=== PATIENT | female | born 1950 | race Caucasian/White ===

== ENCOUNTER 2017-12-21 10:03 | Inpatient (IN) | payer MEDICARE ==
[~2017-12-21] VITALS: Ht 165.1 cm; Wt 129.5 kg
[2017-12-21] VITALS (7 sets, daily range): BP systolic 111–197; BP diastolic 74–96; PULSE 60–86; RESP 16–18; TEMP 97.4–98; O2SAT 95–98
[2017-12-21] MEDS ORDERED: SODIUM CHLOR 0.9% 1000 ML INJ 1,000 ML IV SCH (10:10)
[2017-12-21] MEDS ORDERED: SODIUM CHLORIDE 0.9% FLUSH 10 ML FLUSH IVF PRN (10:15)
[2017-12-21] MEDS ORDERED: ONDANSETRON HCL 4 MG/2 ML VIAL IVP ONE (10:15)
[2017-12-21] MEDS ORDERED: PHEN-414 PO (10:45)
[2017-12-21] MEDS ORDERED: GABA100C4 PO (10:45)
[2017-12-21] MEDS ORDERED: THIO100T2 PO (10:45)
[2017-12-21 10:54] LABS: AUTOMATED NEUTROPHIL # 4.2 TH/MM3 (1.8-7.7); BASOPHIL % 0.4 % (0.0-2.0); EOSINOPHIL # 0.1 TH/MM3 (0-0.4); EOSINOPHIL % 0.8 % (0.0-4.0); HEMOGLOBIN 16.4 GM/DL (11.6-15.3); LYMPH % 27.5 % (9.0-44.0); LYMPHOCYTE # 1.9 TH/MM3 (1.0-4.8); MEAN CELL VOLUME 92.9 FL (80.0-100.0); MEAN CORPUSCULAR HEMOGLOBIN 33.1 PG (27.0-34.0); MEAN CORPUSCULAR HGB CONC 35.7 % (32.0-36.0); MEAN PLATELET VOLUME 9.4 FL (7.0-11.0); MONO % 11.6 % (0.0-8.0); MONOCYTE # 0.8 TH/MM3 (0-0.9); NEUT % 59.7 % (16.0-70.0); PLATELET COUNT 184 TH/MM3 (150-450); RED BLOOD COUNT 4.95 MIL/MM3 (4.00-5.30); RED CELL DISTRIBUTION WIDTH 12.9 % (11.6-17.2); WHITE BLOOD COUNT 7.1 TH/MM3 (4.0-11.0)
[2017-12-21 11:26] LABS: BICARBONATE 29.5 MEQ/L (21.0-32.0); CALCIUM 8.6 MG/DL (8.5-10.1); CREATININE 1.09 MG/DL (0.50-1.00)
--- NOTE | 2017-12-21 11:27 | PD ---
HPI Chief Complaint: GI Complaint Time Seen by Provider: 11:02 Travel History International Travel<30 days: No Contact w/Intl Traveler<30days: No Traveled to known affect area: No History of Present Illness HPI 67-year-old female presents to the emergency department for evaluation of nausea , vomiting, diarrhea for 3 weeks. She also reports some kisha-umbilical abdominal pain as well. She currently rates the pain 2/10, without radiation. Patient has history of epilepsy and schizophrenia. She has tardive dyskinesia on exam, which resource program teacher with her states is normal for her. She did receive Benadryl 50 mg IV by EMS prior to arrival. She does state that she is on phenobarbital, thioridazine being, gabapentin peer patient states she has vomited 2 times this morning and had one episode of diarrhea. She denies being on antibiotics recently. Moderate severity. PFSH Past Medical History High Cholesterol: Yes Seizures: Yes : 0 Past Surgical History Cholecystectomy: Yes Other Surgery: Yes (RIGHT BREAST LUMPECTOMY ) Social History Alcohol Use: No Tobacco Use: No Substance Use: No Allergies-Medications (Allergen,Severity, Reaction): Coded Allergies: chlorpromazine (Unverified Allergy, Mild, 03/30/17) Reported Meds & Prescriptions Reported Meds & Active Scripts Active Reported Thioridazine (Thioridazine HCl) 100 Mg Tab 100 Mg PO HS Phenobarbital 32.4 Mg Tab 64.8 Mg PO HS Gabapentin 100 Mg Cap 200 Mg PO QID Review of Systems Except as stated in HPI: all other systems reviewed are Neg Physical Exam Narrative GENERAL: Well-nourished, well-developed female patient, afebrile SKIN: Focused skin assessment warm/dry. HEAD: Normocephalic. Atraumatic. ENT: Mucosa pink and moist. No erythema or exudates. No uvular edema. No uvular , palatal, or tonsillar deviation. Airway patent. Nasal turbinates appear normal without nasal blood, purulent drainage or septal hematoma. Bilateral tympanic membranes clear without erythema or perforation. EYES: No scleral icterus. No injection or drainage. NECK: Supple, trachea midline. No JVD or lymphadenopathy. CARDIOVASCULAR: Regular rate and rhythm without murmurs, gallops, or rubs. RESPIRATORY: Breath sounds equal bilaterally. No accessory muscle use. Lung sounds are clear to auscultation GASTROINTESTINAL: Abdomen soft and nondistended. Patient has tenderness around periumbilical region. MUSCULOSKELETAL: No cyanosis, or edema. BACK: Nontender without obvious deformity. No CVA tenderness. Data Data Last Documented VS Vital Signs Date Time Temp Pulse Resp B/P (MAP) Pulse Ox O2 Delivery O2 Flow Rate FiO2 12/21/17 10:21 97.4 64 18 197/96 (129) 97 Room Air Orders Orders Basic Metabolic Panel (Bmp) (12/21/17 10:10) Complete Blood Count With Diff (12/21/17 10:10) Ecg Monitoring (12/21/17 10:10) Iv Access Insert/Monitor (12/21/17 10:10) Oximetry (12/21/17 10:10) Ondansetron Inj (Zofran Inj) (12/21/17 10:15) Sodium Chlor 0.9% 1000 Ml Inj (Ns 1000 M (12/21/17 10:10) Sodium Chloride 0.9% Flush (Ns Flush) (12/21/17 10:15) Hepatic Functional Panel (12/21/17 11:17) Lipase (12/21/17 11:17) Urinalysis - C+S If Indicated (12/21/17 11:17) Ct Abd/Pel W Iv Contrast(Rout) (12/21/17 ) Phenobarbital (12/21/17 11:17) Potassium Chlor 20 Meq Premix (Kcl 20 Me (12/21/17 12:00) Potassium Chloride (Kcl) (12/21/17 12:00) Electrocardiogram (12/21/17 ) Electrocardiogram (12/21/17 ) Metoclopramide Inj (Reglan Inj) (12/21/17 12:45) Iohexol 350 Inj (Omnipaque 350 Inj) (12/21/17 12:55) Magnesium (Mg) (12/21/17 12:57) Labs Laboratory Tests Test 12/21/17 10:40 White Blood Count 7.1 TH/MM3 Red Blood Count 4.95 MIL/MM3 Hemoglobin 16.4 GM/DL Hematocrit 46.0 % Mean Corpuscular Volume 92.9 FL Mean Corpuscular Hemoglobin 33.1 PG Mean Corpuscular Hemoglobin Concent 35.7 % Red Cell Distribution Width 12.9 % Platelet Count 184 TH/MM3 Mean Platelet Volume 9.4 FL Neutrophils (%) (Auto) 59.7 % Lymphocytes (%) (Auto) 27.5 % Monocytes (%) (Auto) 11.6 % Eosinophils (%) (Auto) 0.8 % Basophils (%) (Auto) 0.4 % Neutrophils # (Auto) 4.2 TH/MM3 Lymphocytes # (Auto) 1.9 TH/MM3 Monocytes # (Auto) 0.8 TH/MM3 Eosinophils # (Auto) 0.1 TH/MM3 Basophils # (Auto) 0.0 TH/MM3 CBC Comment DIFF FINAL Differential Comment Blood Urea Nitrogen 12 MG/DL Creatinine 1.09 MG/DL Random Glucose 116 MG/DL Calcium Level 8.6 MG/DL Sodium Level 139 MEQ/L Potassium Level 2.5 MEQ/L Chloride Level 99 MEQ/L Carbon Dioxide Level 29.5 MEQ/L Anion Gap 11 MEQ/L Estimat Glomerular Filtration Rate 50 ML/MIN Total Bilirubin 0.8 MG/DL Direct Bilirubin 0.2 MG/DL Indirect Bilirubin 0.6 MG/DL Aspartate Amino Transf (AST/SGOT) 21 U/L Alanine Aminotransferase (ALT/SGPT) 54 U/L Alkaline Phosphatase 109 U/L Total Protein 6.3 GM/DL Albumin 3.1 GM/DL Lipase 65 U/L Phenobarbital Level LESS THAN 2.1 MCG/ML MDM Medical Decision Making Medical Screen Exam Complete: Yes Emergency Medical Condition: Yes Medical Record Reviewed: Yes Interpretation(s) CT abdomen/pelvis - CONCLUSION: 1. No acute findings within the abdomen and pelvis on CT. Previous cholecystectomy. Numerous bilateral renal parapelvic cysts. Differential Diagnosis Gastroenteritis versus colitis versus UTI versus appendicitis versus diverticulitis versus pancreatitis Narrative Course 67-year-old female presents to the emergency department for evaluation of nausea , vomiting, diarrhea periumbilical abdominal pain for 3 weeks. IV access obtained. CBC, CMP, lipase, UA, phenobarbital level are ordered and pending. CT abdomen/pelvis with IV contrast is ordered and pending. Patient is given normal saline 1 L IV bolus, Zofran 4 mg IV per CBC shows no acute abnormality. CMP shows hypokalemia 3.5, creatinine 1.09, glucose 116. Lipase is 65. Phenobarbital level is 2.1. CT abdomen/pelvis shows No acute findings within the abdomen and pelvis on CT. Previous cholecystectomy. Numerous bilateral renal parapelvic cysts. Patient was given potassium 20 mEq IV. She was given potassium 40 mEq p.o., but vomited after receiving potassium p.o. Patient is given Reglan 10 mg IV. Patient will be admitted for intractable vomiting, hypokalemia. Of note, it does appear the patient is going in and out of A. fib. EKG was done and shows atrial fibrillation, heart rate 116. Magnesium level was added and ordered. [facility] is paged for admission. Dr. Stanley accepted admission. Diagnosis Primary Impression: Intractable vomiting with nausea Qualified Codes: R11.2 - Nausea with vomiting, unspecified Additional Impressions: Hypokalemia Atrial fibrillation by electrocardiogram Admitting Information Admitting Physician Requests: Admit Era Chapman December 21, 2017 11:27
[2017-12-21 11:43] LABS: ALBUMIN 3.1 GM/DL (3.4-5.0); ALT (GPT) 54 U/L (10-53); AST (GOT) 21 U/L (15-37); DIRECT BILIRUBIN ADULT 0.2 MG/DL (0.0-0.2)
[2017-12-21 11:44] LABS: ALKALINE PHOSPHATASE 109 U/L (45-117); INDIRECT BILIRUBIN 0.6 MG/DL (0.0-0.8); TOTAL BILIRUBIN ADULT 0.8 MG/DL (0.2-1.0); TOTAL PROTEIN 6.3 GM/DL (6.4-8.2)
[2017-12-21] MEDS ORDERED: POTASSIUM CHLORIDE 20 MEQ CONTROLLED RELEASE TAB PO ONE (12:00)
[2017-12-21] MEDS ORDERED: POTASSIUM CHLOR 20 MEQ PREMIX 100 ML IV ONE (12:00)
[2017-12-21] MEDS ORDERED: METOCLOPRAMIDE HCL 10 MG/2 ML VIAL IV PUSH ONE (12:45)
[2017-12-21] MEDS ORDERED: IOHEXOL 350 MG/ML 10 ML VIAL (for RAD DIAG) IVCONTRAST ONE (12:55)
--- NOTE | 2017-12-21 13:13 | RADRPT ---
EXAM DATE/TIME: 12/21/2017 12:31 [place] COMPARISON: No previous studies available for comparison. INDICATIONS : Nausea, vomiting and diarrhea for three weeks. IV CONTRAST: 96 cc Omnipaque 350 (iohexol) IV ORAL CONTRAST: No oral contrast ingested. RADIATION DOSE: 8.91 CTDIvol (mGy) MEDICAL HISTORY : None SURGICAL HISTORY : Cholecystectomy. ENCOUNTER: Initial ACUITY: 1 day PAIN SCALE: 3/10 LOCATION: abdomen TECHNIQUE: Volumetric scanning of the abdomen and pelvis was performed. Using automated exposure control and ad justment of the mA and/or kV according to patient size, radiation dose was kept as low as reasonably achievable to obtain optimal diagnostic quality images. DICOM format image data is available electro nically for review and comparison. FINDINGS: Lung bases are clear no significant abnormality in the liver, spleen, adrenals or pancreas. Previous cholecystectomy. Numerous parapelvic cysts in both kidneys. Ureters have normal caliber. No pelvic masses or free fluid. No adenopathy. Mild scoliosis. CONCLUSION: 1. No acute findings within the abdomen and pelvis on CT. Previous cholecystectomy. Numerous bilatera l renal parapelvic cysts. Robert Farnsworth MD on December 21, 2017 at 13:07 Board Certified Radiologist. This report was verified electronically.
--- NOTE | 2017-12-21 14:05 | PD ---
Physical Exam Narrative GENERAL: 67 y/o female in no apparent distress SKIN: Focused skin assessment warm/dry. HEAD: Atraumatic. Normocephalic. EYES: Pupils equal and round. No scleral icterus. No injection or drainage. ENT: No nasal bleeding or discharge. Mucous membranes pink and moist. NECK: Trachea midline. CARDIOVASCULAR: Regular rate and rhythm. RESPIRATORY: No accessory muscle use. Clear to auscultation. Breath sounds equal bilaterally. GASTROINTESTINAL: Abdomen soft, non-tender, nondistended. MUSCULOSKELETAL: No obvious deformities. No clubbing. No cyanosis. NEUROLOGICAL: Awake and alert. No obvious cranial nerve deficits. Motor grossly within normal limits. Normal speech. PSYCHIATRIC: Appropriate mood and affect; insight and judgment normal. Data Data Last Documented VS Vital Signs Date Time Temp Pulse Resp B/P (MAP) Pulse Ox O2 Delivery O2 Flow Rate FiO2 12/21/17 10:21 97.4 64 18 197/96 (129) 97 Room Air Orders Orders Basic Metabolic Panel (Bmp) (12/21/17 10:10) Complete Blood Count With Diff (12/21/17 10:10) Ecg Monitoring (12/21/17 10:10) Iv Access Insert/Monitor (12/21/17 10:10) Oximetry (12/21/17 10:10) Ondansetron Inj (Zofran Inj) (12/21/17 10:15) Sodium Chlor 0.9% 1000 Ml Inj (Ns 1000 M (12/21/17 10:10) Sodium Chloride 0.9% Flush (Ns Flush) (12/21/17 10:15) Hepatic Functional Panel (12/21/17 11:17) Lipase (12/21/17 11:17) Urinalysis - C+S If Indicated (12/21/17 11:17) Ct Abd/Pel W Iv Contrast(Rout) (12/21/17 ) Phenobarbital (12/21/17 11:17) Potassium Chlor 20 Meq Premix (Kcl 20 Me (12/21/17 12:00) Potassium Chloride (Kcl) (12/21/17 12:00) Electrocardiogram (12/21/17 ) Electrocardiogram (12/21/17 ) Metoclopramide Inj (Reglan Inj) (12/21/17 12:45) Iohexol 350 Inj (Omnipaque 350 Inj) (12/21/17 12:55) Magnesium (Mg) (12/21/17 12:57) Admit Order (Ed Use Only) (12/21/17 13:34) Labs Laboratory Tests Test 12/21/17 00:00 12/21/17 10:40 Magnesium Level 1.9 MG/DL White Blood Count 7.1 TH/MM3 Red Blood Count 4.95 MIL/MM3 Hemoglobin 16.4 GM/DL Hematocrit 46.0 % Mean Corpuscular Volume 92.9 FL Mean Corpuscular Hemoglobin 33.1 PG Mean Corpuscular Hemoglobin Concent 35.7 % Red Cell Distribution Width 12.9 % Platelet Count 184 TH/MM3 Mean Platelet Volume 9.4 FL Neutrophils (%) (Auto) 59.7 % Lymphocytes (%) (Auto) 27.5 % Monocytes (%) (Auto) 11.6 % Eosinophils (%) (Auto) 0.8 % Basophils (%) (Auto) 0.4 % Neutrophils # (Auto) 4.2 TH/MM3 Lymphocytes # (Auto) 1.9 TH/MM3 Monocytes # (Auto) 0.8 TH/MM3 Eosinophils # (Auto) 0.1 TH/MM3 Basophils # (Auto) 0.0 TH/MM3 CBC Comment DIFF FINAL Differential Comment Blood Urea Nitrogen 12 MG/DL Creatinine 1.09 MG/DL Random Glucose 116 MG/DL Calcium Level 8.6 MG/DL Sodium Level 139 MEQ/L Potassium Level 2.5 MEQ/L Chloride Level 99 MEQ/L Carbon Dioxide Level 29.5 MEQ/L Anion Gap 11 MEQ/L Estimat Glomerular Filtration Rate 50 ML/MIN Total Bilirubin 0.8 MG/DL Direct Bilirubin 0.2 MG/DL Indirect Bilirubin 0.6 MG/DL Aspartate Amino Transf (AST/SGOT) 21 U/L Alanine Aminotransferase (ALT/SGPT) 54 U/L Alkaline Phosphatase 109 U/L Total Protein 6.3 GM/DL Albumin 3.1 GM/DL Lipase 65 U/L Phenobarbital Level LESS THAN 2.1 MCG/ML MDM Supervised Visit with JASON: Yes Interpretation(s) CBC & BMP Diagram 12/21/17 10:40 Calcium Level 8.6 Last 24 hours Impressions Abdomen/Pelvis CT 12/21/17 0000 Signed Impressions: Service Date/Time: Thursday, December 21, 2017 12:31 - CONCLUSION: 1. No acute findings within the abdomen and pelvis on CT. Previous cholecystectomy. Numerous bilateral renal parapelvic cysts. Robert Farnsworth MD Narrative Course I, Dr. wright, have reviewed the advance practice practitioner's documentation and am in agreement, met with the patient face to face, made the diagnosis, and the medical decision making was done by me. *My assessment and Findings: 67 -year-old female presents with vomiting and diarrhea. She also is having intermittent movements of her face and was given Benadryl without improvement. She is given antiemetic and unable to tolerate oral potassium. She will be admitted for further electrolyte replacement and emesis control. Patient intermittently here has also had atrial fibrillation that will need to be monitored. Magnesium was added on given significant hypokalemia. Diagnosis Primary Impression: Intractable vomiting with nausea Qualified Codes: R11.2 - Nausea with vomiting, unspecified Additional Impressions: Atrial fibrillation by electrocardiogram Hypokalemia Admitting Information Admitting Physician Requests: Admit Charlotte Wright MD December 21, 2017 14:05
--- NOTE | 2017-12-21 14:34 | HHI.HP ---
[facility] [place] [facility] Admission Diagnosis intractable vomiting, hypokalemia Diagnoses: Chief Complaint: Nausea vomiting, diarrhea 3 weeks Travel History International Travel<30 Days: No Contact w/Intl Traveler <30 Da: No Traveled to Known Affected Are: No History of Present Illness Patient is a 67-year-old female with known history of Schizophrenia, tardive dyskinesia, seizure disorder, legally blind who initially came into the hospital for complaints of nausea, vomiting, diarrhea 3 weeks. Patient states that she is unable to take anything down. Reports that the diarrhea has resolved this morning. Complains of not able to urinate today. States that since she came into the hospital she is unable to void. She has a social work, caregiver at the bedside were and she states that patient is continent of bowel and bladder and able to walk around. Reports that patient is correct that she has not urinated since she came to the hospital. Patient states she continues to have nausea, no vomiting, no diarrhea. Denies chest pain, palpitations, headaches, dizziness. Denies any abdominal pain, abdominal cramping. Denies any fevers, chills. Reports urinary retention. Review of Systems Except as stated in HPI: all other systems reviewed are Neg Past Family Social History Past Medical History Schizophrenia Epilepsy Tardive dyskinesia Seizure Legally blind Past Surgical History Right breast lumpectomy Cholecystectomy Reported Medications Reported Meds & Active Scripts Active Reported Thioridazine (Thioridazine HCl) 100 Mg Tab 100 Mg PO HS Phenobarbital 32.4 Mg Tab 64.8 Mg PO HS Gabapentin 100 Mg Cap 200 Mg PO QID Allergies: Coded Allergies: chlorpromazine (Unverified Allergy, Mild, 03/30/17) Active Ordered Medications Current Medications Medications (Trade) Dose Ordered Sig/Cristi Route Start Time Stop Time Status Last Admin (NS Flush) 2 ml UNSCH PRN IVF 12/21/17 10:15 Family History Mother had cancer Sister has blood clot in the lung Social History Denies alcohol use Denies tobacco use Denies illicit drug use Physical Exam Vital Signs Vital Signs Date Time Temp Pulse Resp B/P (MAP) Pulse Ox O2 Delivery O2 Flow Rate FiO2 12/21/17 10:21 97.4 64 18 197/96 (129) 97 Room Air 12/21/17 10:21 60 18 98 Room Air 12/21/17 10:18 18 12/21/17 10:09 97.4 64 18 197/96 (129) 97 Physical Exam GENERAL: This is an obese, well-developed patient, in no apparent distress. SKIN: Cool and dry. HEAD: Normocephalic. EYES: Pupils equal round and reactive. Extraocular motions intact. No scleral icterus. No injection or drainage. ENT: Nose without bleeding. Throat without erythema. Uvula midline. Airway patent. NECK: Trachea midline. CARDIOVASCULAR: Regular rate and rhythm without murmurs, gallops, or rubs. RESPIRATORY: Clear to auscultation. Breath sounds equal bilaterally. No wheezes , rales, or rhonchi. GASTROINTESTINAL: Abdomen soft, nondistended. Suprapubic tenderness. Bowel sounds active 4. MUSCULOSKELETAL: Extremities without clubbing, cyanosis, or edema. NEUROLOGICAL: Awake and alert. Cranial nerves II through XII intact. Motor and sensory grossly within normal limits. Tardive dyskinesia. Laboratory Laboratory Tests Test 12/21/17 00:00 12/21/17 10:40 Magnesium Level 1.9 White Blood Count 7.1 Red Blood Count 4.95 Hemoglobin 16.4 Hematocrit 46.0 Mean Corpuscular Volume 92.9 Mean Corpuscular Hemoglobin 33.1 Mean Corpuscular Hemoglobin Concent 35.7 Red Cell Distribution Width 12.9 Platelet Count 184 Mean Platelet Volume 9.4 Neutrophils (%) (Auto) 59.7 Lymphocytes (%) (Auto) 27.5 Monocytes (%) (Auto) 11.6 Eosinophils (%) (Auto) 0.8 Basophils (%) (Auto) 0.4 Neutrophils # (Auto) 4.2 Lymphocytes # (Auto) 1.9 Monocytes # (Auto) 0.8 Eosinophils # (Auto) 0.1 Basophils # (Auto) 0.0 CBC Comment DIFF FINAL Differential Comment Blood Urea Nitrogen 12 Creatinine 1.09 Random Glucose 116 Calcium Level 8.6 Sodium Level 139 Potassium Level 2.5 Chloride Level 99 Carbon Dioxide Level 29.5 Anion Gap 11 Estimat Glomerular Filtration Rate 50 Total Bilirubin 0.8 Direct Bilirubin 0.2 Indirect Bilirubin 0.6 Aspartate Amino Transf (AST/SGOT) 21 Alanine Aminotransferase (ALT/SGPT) 54 Alkaline Phosphatase 109 Total Protein 6.3 Albumin 3.1 Lipase 65 Phenobarbital Level LESS THAN 2.1 Result Diagram: 12/21/17 1040 12/21/17 1040 Imaging Last Impressions Abdomen/Pelvis CT 12/21/17 0000 Signed Impressions: Service Date/Time: Thursday, December 21, 2017 12:31 - CONCLUSION: 1. No acute findings within the abdomen and pelvis on CT. Previous cholecystectomy. Numerous bilateral renal parapelvic cysts. MD Kentrell Zavala VTE Risk Assessment Kentrell VTE Risk Assessment: Mod/High Risk (score >= 2) Caprini Risk Assessment Model Point Value = 1 Point Value = 2 Point Value = 3 Point Value = 5 Age 41-60 Minor surgery BMI > 25 kg/m2 Swollen legs Varicose veins or History of unexplained or recurrent spontaneous Oral contraceptives or hormone replacement Sepsis (< 1 month) Serious lung disease, including pneumonia (< 1 month) Abnormal pulmonary function Acute myocardial infarction Congestive heart failure (< 1 month) History of inflammatory bowel disease Medical patient at bed rest Age 61-74 Arthroscopic surgery Major open surgery (> 45 min) Laparoscopic surgery (> 45 min) Malignancy Confined to bed (> 72 hours) Immobilizing plaster cast Central venous access Age >= 75 History of VTE Family history of VTE Factor V Leiden Prothrombin [id number] Lupus anticoagulant Anticardiolipin antibodies Elevated serum homocysteine Heparin-induced thrombocytopenia Other congenital or acquired thrombophilia Stroke (< 1 month) Elective arthroplasty Hip, pelvis, or leg fracture Acute spinal cord injury (< 1 month) Prophylaxis Regimen Total Risk Factor Score Risk Level Prophylaxis Regimen 0-1 Low Early ambulation 2 Moderate Order ONE of the following: *Sequential Compression Device (SCD) *Heparin 5000 units SQ BID 3-4 Higher Order ONE of the following medications: *Heparin 5000 units SQ TID *Enoxaparin/Lovenox 40 mg SQ daily (WT < 150 kg, CrCl > 30 mL/min) *Enoxaparin/Lovenox 30 mg SQ daily (WT < 150 kg, CrCl > 10-29 mL/min) *Enoxaparin/Lovenox 30 mg SQ BID (WT < 150 kg, CrCl > 30 mL/min) AND/OR *Sequential Compression Device (SCD) 5 or more Highest Order ONE of the following medications: *Heparin 5000 units SQ TID (Preferred with Epidurals) *Enoxaparin/Lovenox 40 mg SQ daily (WT < 150 kg, CrCl > 30 mL/min) *Enoxaparin/Lovenox 30 mg SQ daily (WT < 150 kg, CrCl > 10-29 mL/min) *Enoxaparin/Lovenox 30 mg SQ BID (WT < 150 kg, CrCl > 30 mL/min) AND *Sequential Compression Device (SCD) Assessment and Plan Problem List: (1) Intractable vomiting with nausea ICD Code: R11.2 - Nausea with vomiting, unspecified Status: Acute Assessment and Plan Patient is a 67-year-old female with known history of Schizophrenia, tardive dyskinesia, seizure disorder, legally blind who initially came into the hospital for complaints of nausea, vomiting, diarrhea 3 weeks. Intractable nausea, vomiting, diarrhea -Diarrhea has resolved as per patient -Patient was given Zofran 1 dose in the ED and Reglan. Reports it has improved. Continue Zofran for now, and Reglan with meals. -CT of the abdomen and pelvis showed no acute findings within the abdomen and pelvis on CT. Previous cholecystectomy. Numerous bilateral renal parapelvic cysts. -Start clear liquid diet. If patient unable to tolerate will consult GI. Urinary retention -Bladder scan, if greater than 300 mL's straight cath patient. -Monitor output -Send UA Hypokalemia -Potassium replacement given 1 dose in ED -We will add 40 M EQ's IV -Check potassium tomorrow -Keep patient on telemetry Seizure disorder, epilepsy Schizophrenia -Continue home medications DVT prop heparinhep Code Status Full code Discussed Condition With Patient, caregiver, social media developer, Dr. Stanley Problem Qualifiers (1) Intractable vomiting with nausea: Qualified Codes: R11.2 - Nausea with vomiting, unspecified Bolivar Gusman December 21, 2017 14:34
[2017-12-21] MEDS ORDERED: MAGNESIUM HYDROXIDE SUSP 30 ML CUP PO PRN (14:45)
[2017-12-21] MEDS ORDERED: ACETAMINOPHEN 325 MG TAB PO PRN (14:45)
[2017-12-21] MEDS ORDERED: NALOXONE HCL 0.4 MG/ML AMP IV PUSH PRN (14:45)
[2017-12-21] MEDS: HEPARIN SODIUM - SQ 10,000 UNITS/ML VIAL SQ SCH (16:25)
[2017-12-21] MEDS: POTASSIUM CHLOR 20 MEQ PREMIX 100 ML IV SCH ×2 (16:25→18:22)
[2017-12-21] MEDS: SODIUM CHLOR 0.9% 1000 ML INJ 1,000 ML IV SCH (16:25)
[2017-12-21] MEDS: METOCLOPRAMIDE HCL SYRUP 10 MG/10 ML UDC PO SCH ×2 (17:00→20:12)
--- NOTE | 2017-12-21 17:12 | EKG ---
Date Performed: 12/21/2017 Time Performed: 12:20:57 PTAGE: 67 years EKG: ATRIAL FIBRILLATION NONSPECIFIC ST & T-WAVE ABNORMALITY ABNORMAL RHYTHM ECG PREVIOUS TRACING : 03/07/2002 18.10 DOCTOR: Jose Leal Interpretating Date/Time 12/21/2017 17:11:11
[2017-12-21] MEDS: GABAPENTIN 100 MG CAP PO SCH ×2 (18:00→20:12)
[2017-12-21] MEDS: ONDANSETRON HCL 4 MG/2 ML VIAL IVP PRN (18:53)
[2017-12-21] MEDS: PHENobarbital 32.4 MG TAB PO SCH (20:12)
[2017-12-21 20:57] LABS: BACTERIA, URINE MANY /hpf; BILIRUBIN, URINE NEG (NEG); BLOOD, URINE NEG (NEG); GLUCOSE,URINE NEG (NEG); KETONE, URINE NEG (NEG); NITRITE,URINE NEG (NEG); PH, URINE 6.5 (5.0-8.5); SQUAMOUS EPITHELIAL CELL URINE 32 /hpf (0-5); URINE COLOR LIGHT-YELLOW (YELLW/STRAW); URINE LEUKOCYTE ESTERASE MOD (NEG)
[2017-12-21] MEDS ORDERED: THIORIDAZINE 100 MG PO SCH (21:00)
[2017-12-22] VITALS (8 sets, daily range): BP systolic 124–192; BP diastolic 73–107; PULSE 65–85; RESP 16–20; TEMP 97.7–98.4; O2SAT 94–96
[2017-12-22] MEDS: HEPARIN SODIUM - SQ 10,000 UNITS/ML VIAL SQ SCH ×2 (02:09→15:49)
[2017-12-22] MEDS: SODIUM CHLOR 0.9% 1000 ML INJ 1,000 ML IV SCH ×2 (02:09→10:15)
[2017-12-22] MEDS: METOCLOPRAMIDE HCL SYRUP 10 MG/10 ML UDC PO SCH ×3 (08:00→16:00)
[2017-12-22] MEDS: GABAPENTIN 100 MG CAP PO SCH ×4 (08:06→19:40)
[2017-12-22] MEDS: ONDANSETRON HCL 4 MG/2 ML VIAL IVP PRN ×2 (08:07→14:13)
[2017-12-22] MEDS ORDERED: METOCLOPRAMIDE HCL 10 MG/2 ML VIAL IM SCH (08:15)
--- NOTE | 2017-12-22 09:20 | PD.CONS ---
HPI History of Present Illness This is a 67 year old female with hx schizophrenia, tardive dyskinesia, legal blindness who presented to the ER for n/v and diarrhea. Pt says she has had n/ v for 5 days and diarrhea for 10 days. SHe denies abd pain, fevers. SHe actively heaving but there is no emesis. Prior to heaving spell she was asking for breakfast. Per EMR her caregiver reported she was having these symptoms for [address] scan unremarkable. Never had EGD or colonoscopy. Poor historian. (Quiana Tillman) PFSH Past Medical History Schizophrenia Epilepsy Tardive dyskinesia Seizure Legally blind Past Surgical History Right breast lumpectomy Cholecystectomy (Quiana Tillman) Coded Allergies: chlorpromazine (Unverified Allergy, Mild, 03/30/17) Family History Mother had cancer Sister has blood clot in the lung Social History Denies alcohol use Denies tobacco use Denies illicit drug use (Quiana Tillman) Review of Systems Constitutional: DENIES: Fever Eyes: COMPLAINS OF: Blurred vision Ears, nose, mouth, throat: DENIES: Hearing loss Respiratory: DENIES: Cough Cardiovascular: DENIES: Chest pain Gastrointestinal: COMPLAINS OF: Abdominal pain, Diarrhea, Nausea, Vomiting, DENIES: Hematemesis otherwise noncontributory (Quiana Tillman) GI Exam Vitals I&O Vital Signs Date Time Temp Pulse Resp B/P (MAP) Pulse Ox O2 Delivery O2 Flow Rate FiO2 12/22/17 08:53 97.7 72 20 161/86 (111) 95 12/22/17 07:14 79 12/22/17 04:40 98.1 72 17 124/73 (90) 94 12/22/17 04:05 85 12/21/17 23:24 97.8 86 17 119/74 (89) 95 12/21/17 23:00 77 12/21/17 21:01 98.0 83 18 111/81 (91) 96 12/21/17 16:58 97.9 74 16 138/75 (96) 95 12/21/17 14:00 62 18 152/92 (112) 97 Room Air 12/21/17 10:21 97.4 64 18 197/96 (129) 97 Room Air 12/21/17 10:21 60 18 98 Room Air 12/21/17 10:18 18 12/21/17 10:09 97.4 64 18 197/96 (129) 97 I/O 12/21/17 12/21/17 12/21/17 12/22/17 12/22/17 12/22/17 07:00 15:00 23:00 07:00 15:00 23:00 # Voids 2 3 Imaging Last Impressions Abdomen/Pelvis CT 12/21/17 0000 Signed Impressions: Service Date/Time: Thursday, December 21, 2017 12:31 - CONCLUSION: 1. No acute findings within the abdomen and pelvis on CT. Previous cholecystectomy. Numerous bilateral renal parapelvic cysts. Robert Farnsworth MD Laboratory Test 12/21/17 10:40 12/21/17 20:30 White Blood Count 7.1 TH/MM3 Red Blood Count 4.95 MIL/MM3 Hemoglobin 16.4 GM/DL Hematocrit 46.0 % Mean Corpuscular Volume 92.9 FL Mean Corpuscular Hemoglobin 33.1 PG Mean Corpuscular Hemoglobin Concent 35.7 % Red Cell Distribution Width 12.9 % Platelet Count 184 TH/MM3 Mean Platelet Volume 9.4 FL Neutrophils (%) (Auto) 59.7 % Lymphocytes (%) (Auto) 27.5 % Monocytes (%) (Auto) 11.6 % Eosinophils (%) (Auto) 0.8 % Basophils (%) (Auto) 0.4 % Neutrophils # (Auto) 4.2 TH/MM3 Lymphocytes # (Auto) 1.9 TH/MM3 Monocytes # (Auto) 0.8 TH/MM3 Eosinophils # (Auto) 0.1 TH/MM3 Basophils # (Auto) 0.0 TH/MM3 CBC Comment DIFF FINAL Differential Comment Blood Urea Nitrogen 12 MG/DL Creatinine 1.09 MG/DL Random Glucose 116 MG/DL Calcium Level 8.6 MG/DL Sodium Level 139 MEQ/L Potassium Level 2.5 MEQ/L Chloride Level 99 MEQ/L Carbon Dioxide Level 29.5 MEQ/L Anion Gap 11 MEQ/L Estimat Glomerular Filtration Rate 50 ML/MIN Total Bilirubin 0.8 MG/DL Direct Bilirubin 0.2 MG/DL Indirect Bilirubin 0.6 MG/DL Aspartate Amino Transf (AST/SGOT) 21 U/L Alanine Aminotransferase (ALT/SGPT) 54 U/L Alkaline Phosphatase 109 U/L Total Protein 6.3 GM/DL Albumin 3.1 GM/DL Lipase 65 U/L Phenobarbital Level LESS THAN 2.1 MCG/ML Urine Color LIGHT-YELLOW Urine Turbidity HAZY Urine pH 6.5 Urine Specific [place] 1.044 Urine Protein NEG mg/dL Urine Glucose (UA) NEG mg/dL Urine Ketones NEG mg/dL Urine Occult Blood NEG Urine Nitrite NEG Urine Bilirubin NEG Urine Urobilinogen LESS THAN 2.0 MG/DL Urine Leukocyte Esterase MOD Urine WBC 4 /hpf Urine Squamous Epithelial Cells 32 /hpf Urine Bacteria MANY /hpf Microscopic Urinalysis Comment CULTURE INDICATED Date/Time Source Procedure Growth Status 12/21/17 20:30 Urine Clean Catch Urine Culture Pending Received Physical Examination HEENT: PERRL; normocephalic; atraumatic; no jaundice. CHEST: CTA CARDIAC: irr HR ABDOMEN: Soft, obese, nontender; no hepatosplenomegaly; bowel sounds are present in all four quadrants. EXTREMITIES: No clubbing, cyanosis, or edema. SKIN: Normal; no rash; no jaundice. PANELBEATER: alert (Quiana Tillman) Assessment and Plan Plan ASSESSMENT - n/v diarrhea - unclear etiology. duration 5-10 days. no abd pain. labs unremarkable other than low potassium imaging unremarkable. never had EGD or colonoscopy. will do EGD r/o ulcers, gastritis, h pylori - hypo kalemia - being corrected PLAN - EGD tomorrow - obtain consent - NPO after midnight - clears today - antiemetics PRN - stool studies - correct potassium - supportive care pt seen by myself and Dr Higginbotham and this note is on his behalf (Quiana Tillman) Physician Comments Seen and examined with MAYRA, egd planned for tomorrow. Continue anti nausea meds. Will follow. Thank you (Ubaldo Higginbotham MD) Quiana Tillman December 22, 2017 09:20 Ubaldo Higginbotham MD December 22, 2017 09:55
[2017-12-22] MEDS: METOCLOPRAMIDE HCL 10 MG/2 ML VIAL IV SCH ×2 (10:16→18:05)
[2017-12-22 11:42] LABS: AUTOMATED NEUTROPHIL # 3.8 TH/MM3 (1.8-7.7); BASOPHIL % 0.4 % (0.0-2.0); EOSINOPHIL # 0.1 TH/MM3 (0-0.4); EOSINOPHIL % 1.1 % (0.0-4.0); HEMATOCRIT 42.2 % (35.0-46.0); LYMPH % 28.9 % (9.0-44.0); LYMPHOCYTE # 1.9 TH/MM3 (1.0-4.8); MEAN CELL VOLUME 94.2 FL (80.0-100.0); MEAN CORPUSCULAR HEMOGLOBIN 33.4 PG (27.0-34.0); MEAN CORPUSCULAR HGB CONC 35.4 % (32.0-36.0); MEAN PLATELET VOLUME 9.5 FL (7.0-11.0); MONO % 9.5 % (0.0-8.0); MONOCYTE # 0.6 TH/MM3 (0-0.9); NEUT % 60.1 % (16.0-70.0); PLATELET COUNT 158 TH/MM3 (150-450); RED BLOOD COUNT 4.48 MIL/MM3 (4.00-5.30); RED CELL DISTRIBUTION WIDTH 12.8 % (11.6-17.2); WHITE BLOOD COUNT 6.4 TH/MM3 (4.0-11.0)
--- NOTE | 2017-12-22 11:55 | EKG ---
Date Performed: 12/21/2017 Time Performed: 12:02:27 PTAGE: 67 years EKG: ATRIAL FIBRILLATION WITH RAPID VENTRICULAR RESPONSE NONSPECIFIC ST & T-WAVE ABNORMALITY ABN ORMAL RHYTHM ECG NO PREVIOUS TRACING DOCTOR: Jose Leal Interpretating Date/Time 12/23/2017 14:05:49
[2017-12-22 12:05] LABS: AST (GOT) 21 U/L (15-37); BICARBONATE 26.1 MEQ/L (21.0-32.0); BLOOD UREA NITROGEN 7 MG/DL (7-18); CHLORIDE 103 MEQ/L (98-107); CREATININE 0.87 MG/DL (0.50-1.00); GLOMERULAR FILTRATION RATE 65 ML/MIN (>89); GLUCOSE,RANDOM 131 MG/DL (74-106); SODIUM (NA) 140 MEQ/L (136-145)
[2017-12-22 12:15] LABS: ALKALINE PHOSPHATASE 103 U/L (45-117); ALT (GPT) 44 U/L (10-53); TOTAL BILIRUBIN ADULT 0.7 MG/DL (0.2-1.0)
--- NOTE | 2017-12-22 12:40 | HHI.PR ---
Subjective Remarks Follow up intractable nausea and vomiting 12/22/17-patient seen and examined, still with episodes of dry hives; some shortness of breath Objective Vitals Vital Signs Date Time Temp Pulse Resp B/P (MAP) Pulse Ox O2 Delivery O2 Flow Rate FiO2 12/22/17 12:00 98.0 68 20 159/81 (107) 94 12/22/17 08:53 97.7 72 20 161/86 (111) 95 12/22/17 07:14 79 12/22/17 04:40 98.1 72 17 124/73 (90) 94 12/22/17 04:05 85 12/21/17 23:24 97.8 86 17 119/74 (89) 95 12/21/17 23:00 77 12/21/17 21:01 98.0 83 18 111/81 (91) 96 12/21/17 16:58 97.9 74 16 138/75 (96) 95 12/21/17 14:00 62 18 152/92 (112) 97 Room Air I/O 12/21/17 12/21/17 12/21/17 12/22/17 12/22/17 12/22/17 07:00 15:00 23:00 07:00 15:00 23:00 # Voids 2 3 # Bowel Movements 1 Result Diagram: 12/22/17 1054 12/22/17 1054 Imaging Last Impressions Abdomen/Pelvis CT 12/21/17 0000 Signed Impressions: Service Date/Time: Thursday, December 21, 2017 12:31 - CONCLUSION: 1. No acute findings within the abdomen and pelvis on CT. Previous cholecystectomy. Numerous bilateral renal parapelvic cysts. Robert Farnsworth MD Objective Remarks GENERAL: NAD SKIN: Warm and dry. HEAD: Normocephalic. EYES: No scleral icterus. No injection or drainage. NECK: Supple, trachea midline. No JVD or lymphadenopathy. CARDIOVASCULAR: Regular rate and rhythm without murmurs, gallops, or rubs. RESPIRATORY: Breath sounds equal bilaterally. No accessory muscle use. GASTROINTESTINAL: Abdomen soft, non-tender, nondistended. MUSCULOSKELETAL: No cyanosis, or edema. BACK: Nontender without obvious deformity. No CVA tenderness. A/P Problem List: (1) Intractable vomiting with nausea ICD Code: R11.2 - Nausea with vomiting, unspecified Status: Acute Assessment and Plan Intractable nausea, vomiting, diarrhea -Diarrhea has resolved as per patient -Patient was given Zofran 1 dose in the ED and Reglan. Reports it has improved. Continue Zofran for now, and Reglan with meals. -CT of the abdomen and pelvis showed no acute findings within the abdomen and pelvis on CT. Previous cholecystectomy. Numerous bilateral renal parapelvic cysts. -Appreciate input from GI and plan to do EGD in Am 12/23/17 Urinary retention -Monitor output Abnormal UA Currently on IV antibiotic Hypokalemia -Replace K and monitor Seizure disorder, epilepsy Schizophrenia -Continue home medications DVT prop heparin Change to inpatient admission Problem Qualifiers (1) Intractable vomiting with nausea: Qualified Codes: R11.2 - Nausea with vomiting, unspecified Timothy Stanley MD December 22, 2017 12:40
[2017-12-22] MEDS ORDERED: POTASSIUM CHLOR 20 MEQ PREMIX 100 ML IV ONE (14:00)
[2017-12-22] MEDS: POTASSIUM CHLOR 20 MEQ PREMIX 100 ML IV SCH ×2 (16:01→18:05)
[2017-12-22] MEDS ORDERED: PROMETHAZINE HCL 25 MG SUPP RECTAL PRN (16:15)
[2017-12-22] MEDS ORDERED: cloNIDine HCL 0.1 MG TAB PO PRN (16:45)
[2017-12-22] MEDS: PANTOPRAZOLE SODIUM 40 MG VIAL IV PUSH SCH (17:10)
[2017-12-22] MEDS ORDERED: LACTATED RINGER'S 1000 ML IV PRN (18:45)
[2017-12-22] MEDS ORDERED: POVIDONE IODINE 5% (ANTISEPSIS KIT) 4 APPLICATIONS EACH NARE PRN (18:45)
[2017-12-22] MEDS ORDERED: METOPROLOL TARTRATE 25 MG TAB PO PRN (18:45)
[2017-12-22] MEDS ORDERED: SODIUM CHLORID 0.9% 500 ML IV PRN (18:45)
[2017-12-22] MEDS ORDERED: CHLORHEXIDINE GLUCONATE 2 % 1 PACK (2 CLOTHS) TOPICAL PRN (18:45)
[2017-12-22] MEDS: PHENobarbital 32.4 MG TAB PO SCH (19:40)
[2017-12-22 21:50] LABS: HEMOGLOBIN A1C 5.7 % (4.3-6.0)
[2017-12-23] VITALS (7 sets, daily range): BP systolic 134–182; BP diastolic 81–97; PULSE 64–89; RESP 16–20; TEMP 97.6–98.4; O2SAT 92–98
[2017-12-23] MEDS: SODIUM CHLOR 0.9% 1000 ML INJ 1,000 ML IV SCH ×2 (00:09→20:35)
[2017-12-23] MEDS: HEPARIN SODIUM - SQ 10,000 UNITS/ML VIAL SQ SCH (02:19)
[2017-12-23] MEDS: METOCLOPRAMIDE HCL 10 MG/2 ML VIAL IV SCH ×3 (02:19→17:45)
[2017-12-23 07:18] LABS: AUTOMATED NEUTROPHIL # 3.4 TH/MM3 (1.8-7.7); BASOPHIL % 0.5 % (0.0-2.0); EOSINOPHIL # 0.1 TH/MM3 (0-0.4); HEMATOCRIT 41.9 % (35.0-46.0); LYMPH % 31.2 % (9.0-44.0); LYMPHOCYTE # 1.8 TH/MM3 (1.0-4.8); MEAN CELL VOLUME 93.8 FL (80.0-100.0); MEAN CORPUSCULAR HEMOGLOBIN 33.5 PG (27.0-34.0); MEAN CORPUSCULAR HGB CONC 35.7 % (32.0-36.0); MEAN PLATELET VOLUME 9.2 FL (7.0-11.0); MONO % 8.6 % (0.0-8.0); MONOCYTE # 0.5 TH/MM3 (0-0.9); NEUT % 58.7 % (16.0-70.0); PLATELET COUNT 154 TH/MM3 (150-450); RED BLOOD COUNT 4.46 MIL/MM3 (4.00-5.30); RED CELL DISTRIBUTION WIDTH 12.8 % (11.6-17.2); WHITE BLOOD COUNT 5.7 TH/MM3 (4.0-11.0)
[2017-12-23 07:42] LABS: BICARBONATE 27.9 MEQ/L (21.0-32.0); CALCIUM 8.3 MG/DL (8.5-10.1); CREATININE 0.78 MG/DL (0.50-1.00)
[2017-12-23] MEDS: GABAPENTIN 100 MG CAP PO SCH ×4 (09:00→21:05)
--- NOTE | 2017-12-23 11:19 | GIPROC ---
[facility] [address] [facility]. [facility], [address] EGD PROCEDURE REPORT EXAM DATE: 12/23/2017 PATIENT NAME: Lyn Miller MR #: [id number] BIRTHDATE: 1950 ATTENDING: Ubaldo Higginbotham MD ORDER #: [id number] [facility]GER [facility] STATUS: inpatient INDICATIONS: The patient is a 67 yr old female here for an EGD due to acute post hemorrhagic anemia PROCEDURE PERFORMED: EGD w/ biopsy MEDICATIONS: None and Per Anesthesia. TOPICAL ANESTHETIC: CONSENT: The patient understands the risks and benefits of the procedure and understands that these risks include, but are not limited to: sedation, allergic reaction, infection, perforation and/or bleeding. Alternative means of evaluation and treatment include, among others: physical exam, x-rays, and/or surgical intervention. The patient elects to proceed with this endoscopic procedure. medical equipment was checked for proper function. Hand hygiene and appropriate measures for infection prevention was taken. After the risks, benefits and alternatives of the procedure were thoroughly explained, Informed consent was verified, confirmed and timeout was successfully executed by the treatment team. The patient was anesthetized with topical anesthesia and the EC-[id number] (Pedi C) endoscope was introduced through the mouth and advanced to the second portion of the duodenum. Retroflexed views revealed a hiatal hernia The gastroscope was then slowly withdrawn and removed. ESOPHAGUS: There was LA Class A esophagitis noted. A biopsy was performed using cold forceps. Sample sent for histology. STOMACH: There was erythematous moderate gastritis in the gastric antrum. A biopsy was performed using cold forceps. Sample sent for histology. DUODENUM: Moderate duodenal inflammation was found in the bulb and second portion of the duodenum. ADVERSE EVENTS: There were no complications. IMPRESSIONS: 1. There was LA Class A esophagitis noted; biopsy was performed 2. There was erythematous gastritis in the gastric antrum; biopsy was performed 3. Duodenal inflammation was found in the bulb and second portion of the duodenum 4. Retroflexed views revealed a hiatal hernia RECOMMENDATIONS: 1. Await biopsy results. Biopsy results will not be ready for 7-10 days. If you don't hear from us in two weeks, call our office for biopsy results. 2. Anti-reflux regimen 3. Continue PPI 4. Avoid NSAIDS PATIENT CONDITION: stable DISPOSITION: Inpatient REPEAT EXAM: Return 1 year EGD pending biopsy results Ubaldo Higginbotham MD eSigned: Ubaldo Higginbotham MD 12/23/2017 11:19 AM cc: PATIENT NAME: Lyn Miller MR#: [id number]
--- NOTE | 2017-12-23 11:28 | HHI.PR ---
Subjective Remarks Follow up intractable nausea and vomiting 12/22/17-patient seen and examined, still with episodes of dry hives; some shortness of breath December 23, 2017-patient seen and examined, still with episode of dry heaves and questionable emesis. Still refusing to take her meds. Objective Vitals Vital Signs Date Time Temp Pulse Resp B/P (MAP) Pulse Ox O2 Delivery O2 Flow Rate FiO2 12/23/17 08:29 97.8 64 20 176/86 (116) 95 12/23/17 04:50 97.6 71 16 135/83 (100) 96 12/23/17 00:14 97.8 64 16 134/81 (98) 92 12/22/17 19:38 98.4 65 16 139/86 (103) 96 12/22/17 16:33 183/107 (132) 12/22/17 15:31 97.8 82 20 192/90 (124) 96 12/22/17 12:00 98.0 68 20 159/81 (107) 94 I/O 12/22/17 12/22/17 12/22/17 12/23/17 12/23/17 12/23/17 07:00 15:00 23:00 07:00 15:00 23:00 Intake Total 100 ml Balance 100 ml Intake IV Total 100 ml # Voids 3 6 3 1 # Bowel Movements 1 0 Result Diagram: 12/23/17 0651 12/23/17 0651 Imaging Last Impressions Abdomen/Pelvis CT 12/21/17 0000 Signed Impressions: Service Date/Time: Thursday, December 21, 2017 12:31 - CONCLUSION: 1. No acute findings within the abdomen and pelvis on CT. Previous cholecystectomy. Numerous bilateral renal parapelvic cysts. Robert Farnsworth MD Objective Remarks GENERAL: NAD SKIN: Warm and dry. HEAD: Normocephalic. EYES: No scleral icterus. No injection or drainage. NECK: Supple, trachea midline. No JVD or lymphadenopathy. CARDIOVASCULAR: Regular rate and rhythm without murmurs, gallops, or rubs. RESPIRATORY: Breath sounds equal bilaterally. No accessory muscle use. GASTROINTESTINAL: Abdomen soft, non-tender, nondistended. MUSCULOSKELETAL: No cyanosis, or edema. BACK: Nontender without obvious deformity. No CVA tenderness. Procedures s/p EGD 12/23/17 1. There was LA Class A esophagitis noted; biopsy was performed 2. There was erythematous gastritis in the gastric antrum; biopsy was performed 3. Duodenal inflammation was found in the bulb and second portion of the duodenum 4. Retroflexed views revealed a hiatal hernia A/P Problem List: (1) Intractable vomiting with nausea ICD Code: R11.2 - Nausea with vomiting, unspecified Status: Acute Assessment and Plan Intractable nausea, vomiting, diarrhea -Diarrhea has resolved as per patient -Patient was given Zofran 1 dose in the ED and Reglan. Reports it has improved. Continue Zofran for now, and Reglan with meals. -CT of the abdomen and pelvis showed no acute findings within the abdomen and pelvis on CT. Previous cholecystectomy. Numerous bilateral renal parapelvic cysts. -Appreciate input from GI and s/p EGD this Am 12/23/17 with finding of esophagitis, and the biopsy report -Patient is still refusing to take her meds -Will consult psychiatry Urinary retention -Monitor output Abnormal UA Urine culture negative Hypokalemia -Replace K and monitor Seizure disorder, epilepsy Schizophrenia -Continue home medications Will Consul psychiatry DVT prop heparin Problem Qualifiers (1) Intractable vomiting with nausea: Qualified Codes: R11.2 - Nausea with vomiting, unspecified Timothy Stanley MD December 23, 2017 11:28
[2017-12-23] MEDS ORDERED: POTASSIUM CHLORIDE 10 MEQ CONTROLLED RELEASE TAB PO ONE (11:30)
[2017-12-23] MEDS ORDERED: PANT40TA3 PO (11:42)
--- NOTE | 2017-12-23 11:43 | HHI.DCPOC ---
Discharge Care Plan Diagnosis: (1) Intractable vomiting with nausea (2) Atrial fibrillation by electrocardiogram Your Health Problems Are: Anxiety Inflammation Goals to Promote Your Health * To prevent worsening of your condition and complications * To maintain your health at the optimal level Directions to Meet Your Goals Take your medications as prescribed Follow your dietary instruction Follow activity as directed Keep your appointments as scheduled Take your immunizations and boosters as scheduled If your symptoms worsen call your PCP, if no PCP go to Urgent Care Center or Emergency Room Smoking is Dangerous to Your Health. Avoid second hand smoke Call the 24-hour hour crisis hotline for domestic abuse at [place] December 23, 2017 11:43
[2017-12-23] MEDS ORDERED: LIDOCAINE HCL 1% PF 5 ML SYRINGE OTHER ONE (12:00)
[2017-12-23] MEDS ORDERED: PROPOFOL 200 MG/20 ML AMP IV ONE (12:00)
[2017-12-23] MEDS ORDERED: DEXAMETHASONE SOD PHOS 4 MG/ML VIAL IV ONE (12:00)
[2017-12-23] MEDS ORDERED: ONDANSETRON HCL 4 MG/2 ML VIAL IV PUSH ONE (12:00)
[2017-12-23] MEDS ORDERED: DO NOT ADM ANY ANTICOAGULANT DRUGS PRN (13:45)
[2017-12-23] MEDS: PANTOPRAZOLE SODIUM 40 MG VIAL IV PUSH SCH (17:00)
[2017-12-23] MEDS: PHENobarbital 32.4 MG TAB PO SCH (21:05)
[2017-12-24 00:02] VITALS: BP 124/95; PULSE 87; RESP 18; TEMP 98.1; O2SAT 96
[2017-12-24] MEDS: METOCLOPRAMIDE HCL 10 MG/2 ML VIAL IV SCH ×2 (02:54→09:50)
[2017-12-24 02:58] VITALS: BP 175/92; PULSE 86; RESP 16; TEMP 98.2; O2SAT 97
[2017-12-24 08:22] VITALS: BP 172/68; PULSE 68; RESP 20; TEMP 98.2; O2SAT 96
[2017-12-24] MEDS: GABAPENTIN 100 MG CAP PO SCH ×2 (09:00→13:00)
--- NOTE | 2017-12-24 10:55 | HHI.PR ---
Subjective Remarks Follow up intractable nausea and vomiting 12/22/17-patient seen and examined, still with episodes of dry hives; some shortness of breath December 23, 2017-patient seen and examined, still with episode of dry heaves and questionable emesis. Still refusing to take her meds. December 24, 2017-patient seen and examined, patient was all naked this morning and refusing any type of care. Patient is delusional. Case was discussed with Dr. Bonilla psychiatry, who Strickland acted patient Objective Vitals Vital Signs Date Time Temp Pulse Resp B/P (MAP) Pulse Ox O2 Delivery O2 Flow Rate FiO2 12/24/17 08:22 98.2 68 20 172/68 (102) 96 12/24/17 02:58 98.2 86 16 175/92 (119) 97 12/24/17 00:02 98.1 87 18 124/95 (105) 96 12/23/17 23:15 85 12/23/17 20:49 98.4 89 16 135/87 (103) 95 12/23/17 16:58 97.8 77 19 166/83 (110) 94 12/23/17 12:08 97.6 68 19 182/97 (125) 98 12/23/17 11:45 97.5 60 20 141/81 (101) 96 Nasal Cannula 2 12/23/17 11:30 61 20 141/81 (101) 96 Nasal Cannula 2 12/23/17 11:24 97.5 62 20 143/75 (97) 96 Nasal Cannula 2 I/O 12/23/17 12/23/17 12/23/17 12/24/17 12/24/17 12/24/17 06:59 14:59 22:59 06:59 14:59 22:59 Intake Total 500 ml Balance 500 ml Other 500 ml # Voids 3 1 5 # Bowel Movements 0 Result Diagram: 12/23/17 0651 12/23/17 0651 Imaging Last Impressions Abdomen/Pelvis CT 12/21/17 0000 Signed Impressions: Service Date/Time: Thursday, December 21, 2017 12:31 - CONCLUSION: 1. No acute findings within the abdomen and pelvis on CT. Previous cholecystectomy. Numerous bilateral renal parapelvic cysts. Robert Farnsworth MD Objective Remarks GENERAL: NAD SKIN: Warm and dry. HEAD: Normocephalic. EYES: No scleral icterus. No injection or drainage. NECK: Supple, trachea midline. No JVD or lymphadenopathy. CARDIOVASCULAR: Regular rate and rhythm without murmurs, gallops, or rubs. RESPIRATORY: Breath sounds equal bilaterally. No accessory muscle use. GASTROINTESTINAL: Abdomen soft, non-tender, nondistended. MUSCULOSKELETAL: No cyanosis, or edema. BACK: Nontender without obvious deformity. No CVA tenderness. Procedures s/p EGD 12/23/17 1. There was LA Class A esophagitis noted; biopsy was performed 2. There was erythematous gastritis in the gastric antrum; biopsy was performed 3. Duodenal inflammation was found in the bulb and second portion of the duodenum 4. Retroflexed views revealed a hiatal hernia A/P Problem List: (1) Intractable vomiting with nausea ICD Code: R11.2 - Nausea with vomiting, unspecified Status: Acute Assessment and Plan Intractable nausea, vomiting, diarrhea -Diarrhea has resolved as per patient -Patient was given Zofran 1 dose in the ED and Reglan. Reports it has improved. Continue Zofran for now, and Reglan with meals. -CT of the abdomen and pelvis showed no acute findings within the abdomen and pelvis on CT. Previous cholecystectomy. Numerous bilateral renal parapelvic cysts. -Appreciate input from GI and s/p EGD this Am 12/23/17 with finding of esophagitis, and the biopsy report -Patient is still refusing to take her meds -Patient's current issues appear to be psychiatric Urinary retention -Monitor output Abnormal UA Urine culture negative Hypokalemia -Replace K and monitor Seizure disorder, epilepsy Schizophrenia -Continue home medications Appreciate input from psychiatry Dr. Bonilla, with whom case was discussed this morning Patient has been Strickland acted Psychiatry requested EEG DVT prop heparin Patient likely discharge to inpatient med psych after EEG resulted Problem Qualifiers (1) Intractable vomiting with nausea: Qualified Codes: R11.2 - Nausea with vomiting, unspecified Timothy Stanley MD December 24, 2017 10:55
[2017-12-24] MEDS ORDERED: HALOPERIDOL LACTATE 5 MG/ML AMP IM PRN (11:45)
[2017-12-24 11:53] VITALS: BP 194/88; PULSE 62; RESP 20; TEMP 99; O2SAT 96
[2017-12-24] MEDS ORDERED: QUEtiapine FUMARATE 25 MG TAB PO SCH (12:00)
--- NOTE | 2017-12-24 12:03 | PD.PSY.CON ---
Provisional Diagnosis Admission Date December 21, 2017 at 13:35 O'Brien I. Schizophrenia O'Brien II. Deferred O'Brien III. Epilepsia, intractable nausea O'Brien IV. Poor family and social support O'Brien V. 45 History of Present Illness Service Psychiatry Consult Requested By ER team Reason for Consult Psychotic behavior Primary Care Physician Unknown HPI The patient is a 67-year-old woman, domiciled alone in an apartment in [facility], single, no kids, poor family and social support, she is unemployed, supported by [facility], with psychiatric history of schizophrenia, multiple psychiatric hospitalizations, no suicidal attempts, she does not have any recent psychiatric admission, she has been following in outpatient with Dr. FERNANDO, she has been treated with thioridazine 100 mg daily, she has medical history of epilepsia, legally blind who initially came into the hospital for complaints of nausea, vomiting, diarrhea 3 weeks. Patient states that she is unable to take anything down. Reports that the diarrhea has resolved this morning. Complains of not able to urinate today. States that since she came into the hospital she is unable to void. She has a transition social worker, caregiver at the bedside were and she states that patient is continent of bowel and bladder and able to walk around. Reports that patient is correct that she has not urinated since she came to the hospital. Patient states she continues to have nausea, no vomiting, no diarrhea. Denies chest pain, palpitations, headaches, dizziness. Denies any abdominal pain, abdominal cramping. Denies any fevers, chills. Reports urinary retention. The patient was consulted to psychiatry due to psychotic behavior and increased disorganized speech and paranoia. Patient has not been compliant with his psychotropics for the last 3 weeks. EMR was reviewed. Case was widely discussed with ER team. Collateral information from Buffy Hernandez, , transition social worker was obtained. On psychiatric evaluation I find a patient that is poorly cooperative, she is naked in her room, very disorganized, disheveled, , malodorous. She says that she cannot understand what happened to her. She says that she was at home "making calculations to [employer] in [employer]". Patient reports that she has been having frequent vomits, "for this reason I am not taking medications, I am not eating". The patient reports okay mood. She denies suicidal enemas ideation, she denies visual and auditory hallucinations. She is fully oriented 3. However, she has a prominent blocking thought, speech delay. He seems to be internally stimulated. As per transition social worker report, the patient has not been taking her psychotropics for 3 weeks. Yesterday she found her in her house completely naked, full of feces and talking to her self, which is out of character for the patient. She states that this is a patient that about 3 weeks ago was working part-time, taking care of her finances, very functional. But, she has been complaining of nausea, as a consequence of the nausea she stopped taking her psychotropics and her medical medications, and then decompensated. Review of Systems Constitutional: DENIES: Diaphoretic episodes, Fatigue, Fever, Weight gain, Weight loss, Chills, Dizziness, Change in appetite, Night Sweats Endocrine: DENIES: Abnorml menstrual pattern, Heat/cold intolerance, Polydipsia , Polyuria, Polyphagia Eyes: DENIES: Blurred vision, Diplopia, Eye inflammation, Eye pain, Vision loss , Photosensitivity, Double Vision Ears, nose, mouth, throat: DENIES: Tinnitus, Hearing loss, Vertigo, Nasal discharge, Oral lesions, Throat pain, Hoarseness, Ear Pain, Running Nose, Epistaxis, Sinus Pain, Toothache, Odynophagia Respiratory: DENIES: Apneas, Cough, Snoring, Wheezing, Hemoptysis, Sputum production, Shortness of breath Cardiovascular: DENIES: Chest pain, Palpitations, Syncope, Dyspnea on Exertion , PND, Lower Extremity Edema, Orthopnea, Claudication Gastrointestinal: COMPLAINS OF: Nausea, DENIES: Abdominal pain, Black stools, Bloody stools, Constipation, Diarrhea, Vomiting, Difficulty Swallowing, Anorexia Genitourinary: DENIES: Abnormal vaginal bleeding, Dysmenorrhea, Dyspareunia, Sexual dysfunction, Urinary frequency, Urinary incontinence, Urgency, Hematuria , Dysuria, Nocturia, Vaginal discharge Musculoskeletal: DENIES: Joint pain, Muscle aches, Stiffness, Joint Swelling, Back pain, Neck pain Integumentary: DENIES: Abnormal pigmentation, Pruritus, Rash, Nail changes, Breast masses, Breast skin changes, Nipple discharge Hematologic/lymphatic: DENIES: Bruising, Lymphadenopathy Immunologic/allergic: DENIES: Eczema, Urticaria Neurologic: DENIES: Abnormal gait, Headache, Localized weakness, Paresthesias, Seizures, Speech Problems, Tremor, Poor Balance Psychiatric: COMPLAINS OF: Delusions, DENIES: Anxiety, Confusion, Mood changes , Depression, Hallucinations, Agitation, Suicidal Ideation, Homicidal Ideation Past Family Social History Coded Allergies: chlorpromazine (Unverified Allergy, Mild, 03/30/17) Reported Medications Thioridazine (Thioridazine) 100 Mg Tab, 100 MG PO HS for Schizophrenia, #60 TAB 0 Refills 12/21/17 Phenobarbital (Phenobarbital) 32.4 Mg Tab, 64.8 MG PO HS for Control Seizures, # 90 TAB 0 Refills 12/21/17 Gabapentin (Gabapentin) 100 Mg Cap, 200 MG PO QID, #90 CAP 0 Refills 12/21/17 Current Medications Medications (Trade) Dose Ordered Sig/Cristi Route Start Time Stop Time Status Last Admin (NS Flush) 2 ml UNSCH PRN IVF 12/21/17 10:15 Sodium Chloride 1,000 ml @ 50 mls/hr Q20H IV 12/21/17 14:36 12/23/17 00:09 (Tylenol) 650 mg Q4H PRN PO 12/21/17 14:45 (Zofran Inj) 4 mg Q6H PRN IVP 12/21/17 14:45 12/22/17 14:13 (Heparin Inj) 5,000 units Q12H SQ 12/21/17 14:45 Future Hold 12/23/17 02:19 (Narcan Inj) 0.4 mg UNSCH PRN IV PUSH 12/21/17 14:45 (Milk Of Magnesia Liq) 30 ml Q12H PRN PO 12/21/17 14:45 (Neurontin) 200 mg QID PO 12/21/17 18:00 12/23/17 21:05 (PHENobarbital) 64.8 mg HS PO 12/21/17 21:00 12/23/17 21:05 Patient Own Medication PT OWN MED: (Thioridazine 100 MG)... HS PO 12/21/17 21:00 Future Hold (Reglan Inj) 5 mg Q8H IV 12/22/17 10:00 12/24/17 09:50 (Phenergan Supp) 25 mg Q6H PRN RECTAL 12/22/17 16:15 (Protonix Inj) 40 mg Q24H IV PUSH 12/22/17 17:00 12/23/17 17:00 (Catapres) 0.1 mg Q6H PRN PO 12/22/17 16:45 12/22/17 17:10 Lactated Ringer's 1,000 ml @ 30 mls/hr Q24H PRN IV 12/22/17 18:45 12/25/17 18:44 12/23/17 09:00 Sodium Chloride 500 ml @ 30 mls/hr [id number] PRN IV 12/22/17 18:45 12/25/17 18:44 (Lopressor) 25 mg BUSINESS ASSOCIATE PRN PO 12/22/17 18:45 12/25/17 18:44 (Betadine 5% Antisepsis Kit) 1 applic BUSINESS ASSOCIATE PRN EACH NARE 12/22/17 18:45 12/25/17 18:44 (Chlorhexidine 2% Cloth) 3 pack BUSINESS ASSOCIATE PRN TOPICAL 12/22/17 18:45 12/25/17 18:44 ([facility]) ALL NURSING DEPARTME... UNSCH PRN .XX 12/23/17 13:45 12/24/17 13:44 Family Psych History No family psychiatric history Social History Patient lives alone in her apartment in [facility], a single, has no kids, per family and social support, she is supported by [facility], she also works part-time, Patient's Strengths (min. 2) Established outpatient psychiatric Physical Exam Patient is quite agitated, disorganized, malodorous, Vital Signs Vital Signs Date Time Temp Pulse Resp B/P (MAP) Pulse Ox O2 Delivery O2 Flow Rate FiO2 12/24/17 08:22 98.2 68 20 172/68 (102) 96 12/23/17 11:45 Nasal Cannula 2 Lab Results Date/Time Source Procedure Growth Status 12/21/17 20:30 Urine Clean Catch Urine Culture - Final 50-100,000 CFU/ML MIXED LIZBETH... Complete Mental Status Examination Appearance: Dirty, Disheveled, Malodorous Consciousness: Alert Orientation: x4 Motor Activity: Abnormal gait Speech: Incoherent Language: Adequate Fund of Knowledge: Inadequate Attention and Concentration: Adequate Memory: Unremarkable Mood: Oppositional, Irritable Affect: Irritable Thought Process & Associations: Loose associations, Disorganized Thought Content: Bizarre thinking Hallucination Type: Auditory Delusion Type: Paranoid Suicidal Ideation: No Suicidal Plan: No Suicidal Intention: No Homicidal Ideation: No Homicidal Plan: No Homicidal Intention: No Insight: Poor Judgment: Poor Assessment & Plan Problem List: (1) Schizophrenia ICD Codes: F20.9 - Schizophrenia, unspecified Assessment & Plan: On psychiatric evaluation today I find a patient that is quite disorganized, agitated, naked in her room, very malodorous and disheveled. Patient is internally stimulated, with prominent blocking thought and delay speech, with Javier loosening of associations. The patient is reported to be increasingly disorganized and psychotic in the last 3 weeks due to noncompliant with her psychotropics. Apparently the patient was functioning at baseline until she is started having nausea and stopped taking all her psychotropics medical medications having as a consequence this current decompensation state. Given her psychotic presentation the patient is unable to take care of herself, she needs psychiatric hospitalization for stabilization. Will be admitted in med psych unit for concurrent psychiatric and medical treatment. Will discontinue thioridazine 100 mg and start Seroquel 25 mg twice daily for psychosis. Will order EKG since last QTc was 458, also order EEG to rule out epileptogenic activity as a source of psychosis and AMS per. Haldol 5 mg IM every 8 hours as needed aggressive behavior and agitation if QTC is on the 460. Transfer to [facility] was medically appropriate. Assessment & Plan Estimated LOS: Christopher Hart MD December 24, 2017 12:03
--- NOTE | 2017-12-24 12:26 | HHI.GIFU ---
Subjective Remarks Patient is resting in the bed awake attempting to answer simple questions States she still has some nausea and vomiting with liquids but does okay with Jell-O and solid food. No abdominal pain Obese Afebrile, temp high 99. (Dolly Coburn) Objective Vitals I&O Vital Signs Date Time Temp Pulse Resp B/P (MAP) Pulse Ox O2 Delivery O2 Flow Rate FiO2 12/24/17 11:53 99.0 62 20 194/88 (123) 96 12/24/17 08:22 98.2 68 20 172/68 (102) 96 12/24/17 02:58 98.2 86 16 175/92 (119) 97 12/24/17 00:02 98.1 87 18 124/95 (105) 96 12/23/17 23:15 85 12/23/17 20:49 98.4 89 16 135/87 (103) 95 12/23/17 16:58 97.8 77 19 166/83 (110) 94 I/O 12/23/17 12/23/17 12/23/17 12/24/17 12/24/17 12/24/17 06:59 14:59 22:59 06:59 14:59 22:59 Intake Total 500 ml Balance 500 ml Other 500 ml # Voids 3 1 5 # Bowel Movements 0 Laboratory Date/Time Source Procedure Growth Status 12/21/17 20:30 Urine Clean Catch Urine Culture - Final 50-100,000 CFU/ML MIXED LIZBETH... Complete Imaging Last Impressions Abdomen/Pelvis CT 12/21/17 0000 Signed Impressions: Service Date/Time: Thursday, December 21, 2017 12:31 - CONCLUSION: 1. No acute findings within the abdomen and pelvis on CT. Previous cholecystectomy. Numerous bilateral renal parapelvic cysts. Robert Farnsworth MD Physical Exam HEENT: normocephalic; atraumatic;, tardive dyskinesia NECK: Neck is supple, obese CHEST: Lungs essentially clear with no obvious rhonchi CARDIAC: Regular rate and rhythm, distant ABDOMEN: Large, round, soft, nondistended, nontender to light palpation bowel sounds are present in all four quadrants. EXTREMITIES: Trace lower extremity edema., Versus obesity SKIN: No obvious rash IP NETWORK ARCHITECT: Awake, attempts to answer simple questions (Dolly Coburn) Assessment and Plan Plan ASSESSMENT - n/v diarrhea - unclear etiology. duration 5-10 days. no abd pain. labs unremarkable other than low potassium imaging unremarkable. never had EGD or colonoscopy. will do EGD r/o ulcers, gastritis, h pylori - hypo kalemia - being corrected 12/24/2017 , EGD done on 12/23/2017, findings erythematous gastritis in the gastric antrum, duodenal inflammation found in the bulb and the second portion of the duodenum, hiatal hernia. No complications Stool studies, pending, LFTs normalized, alkaline phosphatase normal, hemoglobin stable at 15. Patient complains of some nausea with liquids but is tolerating food and Jell-O without any vomiting today. Will need some time on PPI and the symptoms should control. Plan Diet heart healthy eat slowly and chew slowly Take small bites, small drinks of liquids Antiemetics Biopsies pending Antireflux regimen, including PPI Avoid NSAIDs Return for EGD in 1 year, will be glad to follow in the GI office as an outpatient basis pt seen by myself and Dr Higginbotham and this note is on his behalf (Dolly Coburn) Physician Comments Seen and examined with MAYRA, tolerating po diet. Advance as tolerated. CT -ve. Outpatient colonoscopy recommended. GI will sign off, reconsult as needed. Thank you (Ubaldo Higginbotham MD) Dolly Cbourn December 24, 2017 12:26 Ubaldo Higginbotham MD December 24, 2017 15:50
[2017-12-24] MEDS ORDERED: SERO25TA PO (14:51)
[2017-12-24] MEDS ORDERED: HALO5P IM (14:51)
[2017-12-24] MEDS ORDERED: PROM25SU RECTAL (14:51)
[2017-12-24] MEDS ORDERED: METOCLOPRAMIDE IV (14:51)
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
[2017-12-24] MEDS: SODIUM CHLOR 0.9% 1000 ML INJ 1,000 ML IV SCH (16:35)
[2017-12-24] MEDS: PANTOPRAZOLE SODIUM 40 MG VIAL IV PUSH SCH (17:00)
[2017-12-24 17:52] VITALS: BP 140/77; PULSE 86; RESP 20; TEMP 98.2; O2SAT 96
== END 2017-12-24 18:31 | DRG 392 ==
LOC: NEPE 10:03 → OBSVTOIN 13:35 → NEDA 13:35 → INTOOBSV 13:35 → NEPHCDU 15:50
PROVIDERS: ADMIT Hospitalist; ATTEND Hospitalist
PROC: 0DB78ZX Excision of Stomach, Pylorus, Via Natural or Artificial Opening Endoscopic, Diagnostic (ICD-10-PCS; 2017-12-23)
PROC: 0DB58ZX Excision of Esophagus, Via Natural or Artificial Opening Endoscopic, Diagnostic (ICD-10-PCS; principal; 2017-12-23 10:53)
DX: K29.70 Gastritis, unspecified, without bleeding (principal); Z68.42 Body mass index [BMI] 45.0-49.9, adult; I48.91 Unspecified atrial fibrillation; K20.9 Esophagitis, unspecified; G24.01 Drug induced subacute dyskinesia; N28.1 Cyst of kidney, acquired; F20.9 Schizophrenia, unspecified; E87.6 Hypokalemia; K29.80 Duodenitis without bleeding; E66.9 Obesity, unspecified; G40.909 Epilepsy, unspecified, not intractable, without status epilepticus; R19.7 Diarrhea, unspecified; E78.00 Pure hypercholesterolemia, unspecified; R33.9 Retention of urine, unspecified; H54.8 Legal blindness, as defined in USA; K44.9 Diaphragmatic hernia without obstruction or gangrene; R06.02 Shortness of breath; R82.90 Unspecified abnormal findings in urine; R60.0 Localized edema; F41.9 Anxiety disorder, unspecified; Z91.19 Patient's noncompliance with other medical treatment and regimen; Z79.899 Other long term (current) drug therapy
CPT/HCPCS: 74177; 80048; 80053; 80076; 80184; 81001; 83036; 83690; 83735; 85025; 87086; 88305; 88312; 93005; 95819; 96361; 96365; 96375; C9113; G8987-GP; G8988-GP; J1100; J1644; J2405; J2765; J3480; J7030; J7120; Q9967

== ENCOUNTER 2017-12-24 17:08 | Inpatient (IN) | payer MEDICARE ==
[~2017-12-24] VITALS: Ht 165.1 cm; Wt 96.2 kg
[~2017-12-24 17:08] MED LIST: GABA100C4 PO; HALO5P IM; METOCLOPRAMIDE IV; PANT40TA3 PO; PHEN-414 PO; PROM25SU RECTAL; SERO25TA PO; THIO100T2 PO
[2017-12-24 19:00] VITALS: BP 154/89; PULSE 95; RESP 17; TEMP 98.3; O2SAT 96
[2017-12-24] MEDS ORDERED: HALOPERIDOL LACTATE 5 MG/ML AMP IM PRN (22:00)
[2017-12-24] MEDS ORDERED: LORazepam 1 MG TAB PO PRN (22:15)
[2017-12-24] MEDS ORDERED: LORazepam 0.5 MG TAB PO PRN (22:15)
[2017-12-24] MEDS ORDERED: ACETAMINOPHEN 325 MG TAB PO PRN (22:15)
[2017-12-24] MEDS ORDERED: ALUMINUM/MAGNESIUM/SIMETH 30 ML CUP PO PRN (22:15)
[2017-12-24] MEDS ORDERED: MAGNESIUM HYDROXIDE SUSP 30 ML CUP PO PRN (22:15)
[2017-12-24] MEDS ORDERED: LORazepam 2 MG/ML VIAL IM PRN ×2 (22:15)
[2017-12-24] MEDS: PHENobarbital 32.4 MG TAB PO SCH (23:03)
[2017-12-25 06:00] VITALS: BP 149/79; PULSE 75; RESP 18; TEMP 97.8; O2SAT 96
[2017-12-25] MEDS: NICOTINE 21 MG/24 HR PATCH T-DERMAL SCH (09:00)
[2017-12-25] MEDS ORDERED: QUEtiapine FUMARATE 25 MG TAB PO SCH (09:00)
[2017-12-25] MEDS: REMOVE OLD PATCH T-DERMAL SCH (09:00)
[2017-12-25 09:15] LABS: BICARBONATE 29.4 MEQ/L (21.0-32.0); BLOOD UREA NITROGEN 18 MG/DL (7-18); CALCIUM 8.8 MG/DL (8.5-10.1); CHLORIDE 103 MEQ/L (98-107); CHOLESTEROL 136 MG/DL (120-200); CHOLESTEROL/ HDL RATIO 3.36 RATIO; CREATININE 0.94 MG/DL (0.50-1.00); GLOMERULAR FILTRATION RATE 59 ML/MIN (>89); GLUCOSE,RANDOM 101 MG/DL (74-106); HDL CHOLESTEROL 40.4 MG/DL (40.0-60.0); LDL CHOLESTEROL 76 MG/DL (0-99); SODIUM (NA) 140 MEQ/L (136-145); TRIGLYCERIDES 98 MG/DL (42-150)
[2017-12-25] MEDS: GABAPENTIN 100 MG CAP PO SCH ×4 (09:24→21:00)
--- NOTE | 2017-12-25 11:43 | HHI.HP ---
Provisional Diagnosis Admission Date December 24, 2017 at 18:35 [place] I. Schizophrenia Certification of Person's Competence To Provide Express and Informed Consent I have personally examined Lyn Miller , a person being served at [facility] on, December 25, 2017 11:30. Express and informed consent means consent voluntarily given in writing, by a competent person, after sufficient explanation and disclosure of the subject matter involved to enable the person to make a knowing and willful decision without any element of force, fraud, deceit, duress, or other form of constraint or coercion. This person is 18 years of age or older, is not now known to be incompetent to consent to treatment with a guardian advocate, and does not have a health care surrogate or proxy currently making medical treatment decisions. I have found this person to be one of the following: [] Competent to provide express and informed consent, as defined above, for voluntary admission to this facility and is competent to provide express and informed consent for treatment. He/she has the consistent capacity to make well reasoned, willful, and knowing decisions concerning his or her medical or mental health treatment. The person fully and consistently understands the purpose of the admission for examination/placement and is fully capable of personally exercising all rights assured under [place]xxx] Incompetent to provide express and informed consent to voluntary admission , and this is incompetent to provide express and informed consent to treatment. The person must be transferred to involuntary status and a petition for a guardian advocate filed with the Circuit Court. [] Refusing to provide express and informed consent to voluntary admission but is competent to provide express and informed consent for treatment. The person must be discharged or transferred to involuntary status. Form shall be completed within 24 hours of a person's arrival at the receiving facility and filed in the clinical record of each person: 1. Admitted on a voluntary basis 2. Permitted to provide express and informed consent to his/her own treatment 3. Allowed to transfer from involuntary to voluntary status 4. Prior to permitting a person to consent to his or her own treatment after having been previously found incompetent to consent to treatment. History of Present Illness Capacity: Has Capacity HPI The patient is a 67-year-old woman, single, domiciled alone, no children, poor family and social support, currently unemployed but was employed previously, supported by [facility], with psychiatric history of schizophrenia, multiple psychiatric hospitalizations, no suicidal attempts, no recent psychiatric admission, she has been following in outpatient with Dr. FERNANDO, she has been treated with thioridazine 100 mg daily, she has medical history of epilepsia, legally blind who initially came into the hospital for complaints of nausea, vomiting, diarrhea 3 weeks which psychiatry was consulted due to psychotic behavior, increased disorganized speech, paranoia which upon evaluation was noted to be disorganized, loosening associations, thought blocking, internally preoccupied which patient was admitted to the inpatient psychiatry/medical unit for further evaluation and management. As per Dr. Lane's documentation: As per social media executive report, the patient has not been taking her psychotropics for 3 weeks. Yesterday she found her in her house completely naked, full of feces and talking to her self, which is out of character for the patient. She states that this is a patient that about 3 weeks ago was working part-time, taking care of her finances, very functional. But, she has been complaining of nausea, as a consequence of the nausea she stopped taking her psychotropics and her medical medications, and then decompensated. Patient was found on hospital bed noted, cooperative. Patient states that she has stopped her medications recently due to difficulty of being able to keep medications down reporting having significant nausea vomiting for the past 2 weeks which she states also "lost my job" due to the same. Patient states that she had become sick and could not eat or drink anything, having constant vomiting and diarrhea. Patient states that social media executive came to her house and saw how she was doing which they had advised patient to come to the hospital for evaluation and treatment. Patient states that today she feels "better" denying any auditory hallucinations morning but did experience and less evening which were noncommand in nature. Patient denies any visual hallucinations or paranoid ideations at this time. Patient continues to complain of nausea but no episodes of vomiting recently. Family psychiatric history: Denies Past psychiatric history: Previous psychiatric diagnoses schizophrenia, multiple psychiatric admissions, no previous suicide attempts, has outpatient mental health provider, Dr. Fernando, patient unclear of her current psychiatric regimen. Past medical history: Epilepsy, legally blind, hypertension Allergies: Thorazine Social history: Domiciled alone, single, no children, unemployed on SSD, recently was working but lost her job as stated in HPI. Patient states her closest contact is Buffy Hernandez (no number provided). Review of Systems Gastrointestinal: COMPLAINS OF: Nausea Past Psych History Violence risk - others (6 mos) Low Violence risk - self (6 mos) Low Substance Abuse History Drugs/Alcohol past 12 months Tobacco use. Remote alcohol use. Patient denies use any other illegal substance. Past Family Social History Coded Allergies: chlorpromazine (Unverified Allergy, Mild, 03/30/17) Active Scripts Haloperidol Inj (Haldol Inj) 5 Mg/Ml Inj, 5 MG IM Q8HR Y for agitation, aggresive behavior , #1 INJECTION Prov:Bolivar Gusman ROVING TELLER 12/24/17 Quetiapine (Seroquel) 25 Mg Tab, 25 MG PO BID@,12 for Psychosis, #10 TAB Prov:Bolivar Gusman ROVING TELLER 12/24/17 [Metoclopramide Inj] 10 MG/2 ML INJ No Conflict Check, 5 MG IV Q8H for Nausea/ Vomiting, #1 VIAL Prov:Bolivar GusmanP 12/24/17 Promethazine Supp (Promethegan Supp) 25 Mg Supp, 25 MG RECTAL Q6H Y for Nausea, vomiting, #30 SUPP Prov:Bolivar Gusman ROVING TELLER 12/24/17 Pantoprazole (Pantoprazole) 40 Mg Tab, 40 MG PO DAILY for Reflux, #30 TAB 0 Refills Prov:Bolivar Gusman ROVING TELLER 12/23/17 Reported Medications Thioridazine (Thioridazine) 100 Mg Tab, 100 MG PO HS for Schizophrenia, #60 TAB 0 Refills 12/21/17 Phenobarbital (Phenobarbital) 32.4 Mg Tab, 64.8 MG PO HS for Control Seizures, # 90 TAB 0 Refills 12/21/17 Gabapentin (Gabapentin) 100 Mg Cap, 200 MG PO QID, #90 CAP 0 Refills 12/21/17 Current Medications Medications (Trade) Dose Ordered Sig/Cristi Route Start Time Stop Time Status Last Admin (Neurontin) 200 mg QID PO 12/25/17 09:00 12/25/17 09:24 (Haldol Inj) 5 mg Q8HR PRN IM 12/24/17 22:00 (PHENobarbital) 64.8 mg HS PO 12/24/17 22:00 12/24/17 23:03 (SEROquel) 25 mg BID@09,12 PO 12/25/17 09:00 12/25/17 09:25 (Ativan) 1 mg Q6H PRN PO 12/24/17 22:15 (Ativan Inj) 1 mg Q6H PRN IM 12/24/17 22:15 (Ativan) 0.5 mg Q12H PRN PO 12/24/17 22:15 (Ativan Inj) 0.5 mg Q12H PRN IM 12/24/17 22:15 (Tylenol) 650 mg Q4H PRN PO 12/24/17 22:15 (Milk Of Magnesia Liq) 30 ml DAILY PRN PO 12/24/17 22:15 (Mag-Al Plus Susp Liq) 30 ml Q6H PRN PO 12/24/17 22:15 (Habitrol 21 Mg Patch.24 Hr) 1 patch DAILY T-DERMAL 12/25/17 09:00 Miscellaneous Information 1 DAILY T-DERMAL 12/25/17 09:00 (Flu (Quadrivalent) Vaccine Inj) 0.5 ml ONCE ONCE IM 12/26/17 10:00 12/26/17 10:01 Family Psych History Denies Social History Domiciled alone, single, no children, unemployed on SSD, recently was working but lost her job as stated in HPI. Patient states her closest contact is Buffy Hernandez (no number provided). Patient's Strengths (min. 2) Verbal and communicative Physical Exam Patient not noted to be in acute distress, is noted to have mild sore which she complains of pain, no gross motor of maladies but is noted with speech impediment, no signs of tremor or EPS, no signs of psychomotor agitation or retardation. Vital Signs Vital Signs Date Time Temp Pulse Resp B/P (MAP) Pulse Ox O2 Delivery O2 Flow Rate FiO2 12/25/17 06:00 97.8 75 18 149/79 (102) 96 I/O 12/25/17 12/25/17 12/26/17 08:00 16:00 00:00 Intake Total 0 ml Balance 0 ml Lab Results Labs reviewed Test 12/25/17 07:45 Blood Urea Nitrogen 18 MG/DL Creatinine 0.94 MG/DL Random Glucose 101 MG/DL Calcium Level 8.8 MG/DL Sodium Level 140 MEQ/L Potassium Level 3.5 MEQ/L Chloride Level 103 MEQ/L Carbon Dioxide Level 29.4 MEQ/L Anion Gap 8 MEQ/L Estimat Glomerular Filtration Rate 59 ML/MIN Triglycerides Level 98 MG/DL Cholesterol Level 136 MG/DL LDL Cholesterol 76 MG/DL HDL Cholesterol 40.4 MG/DL Cholesterol/HDL Ratio 3.36 RATIO Mental Status Examination Appearance: Disheveled Consciousness: Alert Speech: Speech impediment Language: Adequate Fund of Knowledge: Inadequate Attention and Concentration: Adequate Memory: Unremarkable Mood: Other ("Okay") Affect: Blunt Thought Process & Associations: Other ([place]) Thought Content: Hallucinations Hallucination Type: Auditory (Denies today) Delusion Type: Bizarre Suicidal Ideation: No Suicidal Plan: No Suicidal Intention: No Homicidal Ideation: No Homicidal Plan: No Homicidal Intention: No Insight: Poor Judgment: Poor Assessment & Plan Problem List: (1) Schizophrenia ICD Codes: F20.9 - Schizophrenia, unspecified Assessment & Plan Estimated LOS: 5-7 days. Patient is a 67-year-old woman who carries a diagnosis schizophrenia, previous psychiatric admissions, no prior suicide attempts, med past medical history significant for epilepsy, hypertension and legally blind was b admitted to the inpatient psychiatry unit due to disorganization, auditory hallucinations, self care neglect in the context of noncompliance with treatment and recent nausea and vomiting. Patient this time continues with perceptual services, poverty of thought, and will require further stabilization. We will continue quetiapine 25 mg p.o. twice daily with upper titration for psychosis, continue rest of medications. We will continue to monitor mood and behavior. Collateral information pending. Petition for involuntary hospitalization started, second opinion requested. Discharge planning in progress. Discharge Planning Patient return back to her residence was psychiatrically stable. Timothy Balderas MD December 25, 2017 11:43
[2017-12-25 14:44] LABS: HEMOGLOBIN A1C 5.8 % (4.3-6.0)
[2017-12-25 16:30] VITALS: BP 138/75; PULSE 87; RESP 17; TEMP 97.7; O2SAT 97
[2017-12-25] MEDS: QUEtiapine FUMARATE 25 MG TAB PO SCH (21:00)
[2017-12-25] MEDS: PHENobarbital 32.4 MG TAB PO SCH (21:00)
[2017-12-26 06:16] VITALS: BP 148/86; PULSE 83; RESP 16; TEMP 97.9; O2SAT 94
[2017-12-26] MEDS: GABAPENTIN 100 MG CAP PO SCH ×4 (08:53→21:00)
[2017-12-26] MEDS: QUEtiapine FUMARATE 25 MG TAB PO SCH ×2 (08:54→21:00)
[2017-12-26] MEDS: NICOTINE 21 MG/24 HR PATCH T-DERMAL SCH (08:55)
[2017-12-26] MEDS: REMOVE OLD PATCH T-DERMAL SCH (08:55)
[2017-12-26] MEDS ORDERED: INFLUENZA VIRUS VACCINE (QUADRIVALENT) 0.5 ML SYR IM ONE (10:00)
--- NOTE | 2017-12-26 16:00 | HHI.PYPN ---
Subjective Remarks This is a request for second opinion. Admission note was reviewed and I agree with the history. Patient was seen and case was discussed with nursing. Patient has cognitive deficits and she says she states was in special education. Thought processes simple and concrete. She is tangential and has difficulty focusing on the interview and is perseverant on various events in her childhood. She behaving well on the unit. Compliant with medications Mental Status Examination Appearance: Disheveled Consciousness: Alert Orientation: Person, Place Speech: Speech impediment Language: Adequate Fund of Knowledge: Inadequate Attention and Concentration: Adequate Memory: Unremarkable Mood: Other ("Okay") Affect: Flat Thought Process & Associations: Other ([place]) Thought Content: Hallucinations Hallucination Type: Auditory (Denies today) Delusion Type: Bizarre Suicidal Ideation: No Suicidal Plan: No Suicidal Intention: No Homicidal Ideation: No Homicidal Plan: No Homicidal Intention: No Insight: Poor Judgment: Poor Results Vitals/IOs Vital Signs Date Time Temp Pulse Resp B/P (MAP) Pulse Ox O2 Delivery O2 Flow Rate FiO2 12/26/17 06:16 97.9 83 16 148/86 (451) 94 Assessment & Plan Problem List: (1) Schizophrenia ICD Codes: F20.9 - Schizophrenia, unspecified Assessment & Plan I agree with the first opinion to continue petition. Criteria include self- care deficits Justification for Cont. Inpt. Patient would decompensate in a less restrictive setting Rajiv Cazaers DO December 26, 2017 16:00
[2017-12-26 18:02] VITALS: BP 117/68; PULSE 88; RESP 16; TEMP 97.4; O2SAT 95
[2017-12-26] MEDS: PHENobarbital 32.4 MG TAB PO SCH (21:00)
[2017-12-27 05:33] VITALS: BP 144/72; PULSE 98; RESP 16; TEMP 97.5; O2SAT 94
[2017-12-27] MEDS: NICOTINE 21 MG/24 HR PATCH T-DERMAL SCH (09:00)
[2017-12-27] MEDS: REMOVE OLD PATCH T-DERMAL SCH (09:00)
[2017-12-27] MEDS: GABAPENTIN 100 MG CAP PO SCH ×4 (09:14→20:56)
[2017-12-27] MEDS: QUEtiapine FUMARATE 25 MG TAB PO SCH ×2 (09:14→20:56)
--- NOTE | 2017-12-27 17:09 | HHI.PYPN ---
Subjective Remarks Patient seen for follow-up, chart reviewed. Discussion with nursing staff reported that the patient continues to be poorly motivated, urinate on self at times, compliant with medications. Patient found lying on hospital bed, calm and cooperative. Patient states that the weekend went ok, feeling tired and dizzy at times. She spoke about her pre-admission funciton which she would go to work 5 days of the week. She is A&O x 3 and notes improvment. Patient mentions feeling weak and at times is nota ble to make it to the bathroom. Review of Systems Except as stated in HPI: all other systems reviewed are Neg Mental Status Examination Appearance: Disheveled Consciousness: Alert Orientation: Person, Place Speech: Speech impediment Language: Adequate Fund of Knowledge: Inadequate Attention and Concentration: Adequate Memory: Unremarkable Mood: Other ("Okay") Affect: Flat Thought Process & Associations: Other ([place]) Thought Content: Hallucinations Hallucination Type: Auditory (Denies today) Delusion Type: Bizarre Suicidal Ideation: No Suicidal Plan: No Suicidal Intention: No Homicidal Ideation: No Homicidal Plan: No Homicidal Intention: No Insight: Poor Judgment: Poor Results Vitals/IOs Vital Signs Date Time Temp Pulse Resp B/P (MAP) Pulse Ox O2 Delivery O2 Flow Rate FiO2 12/27/17 05:33 97.5 98 16 144/72 (96) 94 Intake and Output 12/27/17 12/27/17 12/28/17 08:00 16:00 00:00 Intake Total 240 ml 480 ml Balance 240 ml 480 ml Assessment & Plan Problem List: (1) Schizophrenia ICD Codes: F20.9 - Schizophrenia, unspecified Assessment & Plan Patient noted to be less disorganized, contineus wtih decrease ability ambulate and requiring encourage for basic hygiene. Will continue current treatment, monitor mood and behavior, Will order PT and OT consults.Discharge planning in progress. Justification for Cont. Inpt. At risk for further decompensation if at lower level of care. Discharge Planning To be determined Timothy Balderas MD December 27, 2017 17:09
[2017-12-27 18:18] VITALS: BP 106/72; PULSE 118; RESP 18; TEMP 97.7; O2SAT 95
[2017-12-27] MEDS: PHENobarbital 32.4 MG TAB PO SCH (20:56)
[2017-12-28 05:36] VITALS: BP 124/80; PULSE 104; RESP 17; TEMP 97.4; O2SAT 95
[2017-12-28] MEDS: GABAPENTIN 100 MG CAP PO SCH ×4 (08:17→21:28)
[2017-12-28] MEDS: QUEtiapine FUMARATE 25 MG TAB PO SCH ×2 (08:17→21:28)
[2017-12-28] MEDS: NICOTINE 21 MG/24 HR PATCH T-DERMAL SCH (08:18)
[2017-12-28] MEDS: REMOVE OLD PATCH T-DERMAL SCH (08:18)
--- NOTE | 2017-12-28 10:08 | HHI.PYPN ---
Subjective Remarks Patient seen for follow, chart reviewed. Discussion nursing staff reported the patient we will set more less evening, going to the bathroom more. Patient was found sitting in hospital chair noted B, cooperative. Patient states that she slept well last evening her mood has been "fine" denying feeling depressed. Patient states that she had been able to go to the bathroom or since her last visit yesterday, is stating "I have not wet the bed". Patient states that he is trying to be more mobile, and was encouraged to continue activity during admission as well as to participate in groups and activities. Patient states that she would like to be referred to an assisted living facility as she states she may need more support. Review of Systems Except as stated in HPI: all other systems reviewed are Neg Mental Status Examination Appearance: Appropriate Consciousness: Alert Orientation: Person, Place Speech: Speech impediment Language: Adequate Fund of Knowledge: Inadequate Attention and Concentration: Adequate Memory: Unremarkable Mood: Other ("Fine") Affect: Flat Thought Process & Associations: Other ([place]) Thought Content: Hallucinations (Denies today) Hallucination Type: Auditory (Denies today) Delusion Type: Bizarre Suicidal Ideation: No Suicidal Plan: No Suicidal Intention: No Homicidal Ideation: No Homicidal Plan: No Homicidal Intention: No Insight: Fair Judgment: Impulsive Results Vitals/IOs Vital Signs Date Time Temp Pulse Resp B/P (MAP) Pulse Ox O2 Delivery O2 Flow Rate FiO2 12/28/17 05:36 97.4 104 17 124/80 (95) 95 Intake and Output 12/28/17 12/28/17 12/29/17 08:00 16:00 00:00 Intake Total 60 ml 240 ml Balance 60 ml 240 ml Assessment & Plan Problem List: (1) Schizophrenia ICD Codes: F20.9 - Schizophrenia, unspecified Assessment & Plan Patient appears to be responding well to treatment, noted to be eating and drinking more other continues report having some nausea but no vomiting. We will continue current treatment. We will continue to monitor mood and behavior. We will continue to encourage patient to regain mobility, working with physical therapy and occupational therapy for the same. Discharge planning in progress. Justification for Cont. Inpt. At risk for further decompensation if at lower level of care Discharge Planning To be determined Timothy Balderas MD December 28, 2017 10:08
[2017-12-28 18:10] VITALS: BP 128/74; PULSE 82; RESP 16; TEMP 97.8; O2SAT 96
[2017-12-28] MEDS: PHENobarbital 32.4 MG TAB PO SCH (21:28)
[2017-12-29 06:00] VITALS: BP 122/59; PULSE 79; RESP 15; TEMP 98; O2SAT 95
[2017-12-29] MEDS: NICOTINE 21 MG/24 HR PATCH T-DERMAL SCH (09:00)
[2017-12-29] MEDS: QUEtiapine FUMARATE 25 MG TAB PO SCH ×2 (09:00→21:02)
[2017-12-29] MEDS: GABAPENTIN 100 MG CAP PO SCH ×4 (09:00→21:02)
[2017-12-29] MEDS: REMOVE OLD PATCH T-DERMAL SCH (09:00)
[2017-12-29 10:30] VITALS: BP 124/65; PULSE 85; RESP 16; TEMP 97.6; O2SAT 95
--- NOTE | 2017-12-29 12:30 | RADRPT ---
EXAM DATE/TIME: 12/29/2017 11:43 [facility] COMPARISON: No previous studies available for comparison. INDICATIONS : Fell and hit back of head RADIATION DOSE: 34.16 CTDIvol (mGy) MEDICAL HISTORY : Hypertension. Carcinoma, breast. SURGICAL HISTORY : None. ENCOUNTER: Initial ACUITY: 1 day PAIN SCALE: 2/10 LOCATION: cranial TECHNIQUE: Multiple contiguous axial images were obtained of the head. Using automated exposure control and adj ustment of the mA and/or kV according to patient size, radiation dose was kept as low as reasonably a chievable to obtain optimal diagnostic quality images. DICOM format image data is available electro nically for review and comparison. FINDINGS: CEREBRUM: Small hyperdense foci are identified in both cerebral hemispheres. These are located predominately in the parietal lobes along the cortical medullary junction. There are no characteristic findings of ac deering infarct or hemorrhage. There is no evidence of mass effect or edema. POSTERIOR FOSSA: The cerebellum and brainstem are intact. The 4th ventricle is midline. The cerebellopontine angle i s unremarkable. EXTRACRANIAL: The visualized portion of the orbits is intact. 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 There is significant frontal hyperostosis. CONCLUSION: 1. No evidence of acute intracranial process. 2. Surgical calcific deposits which may be the result of previous inflammatory disease. 3. Bilateral temporal craniotomy defects. 4. No evidence of acute infarct, hemorrhage, mass or edema. Warren Gonzalez MD on December 29, 2017 at 12:26 Board Certified Radiologist. This report was verified electronically.
[2017-12-29 16:56] VITALS: BP 121/60; PULSE 85; RESP 16; TEMP 97.3; O2SAT 97
--- NOTE | 2017-12-29 17:00 | HHI.PYPN ---
Subjective Remarks Patient seen for follow-up, chart reviewed. Discussion nursing staff reported the patient fell earlier this morning and hit the back of her head she was getting up from the toilet. Patient continues to be incontinent at times but noted to be getting up and going to the restroom in the evening and night. Patient denies any perceptional services. Patient was found sitting in hospital chair noted, cooperative. Patient states that she fell this morning as she was getting up from the toilet as she felt that her walker had slipped from under her but denying any significant pain at this time. Patient aware that she will be going to CT scan for the same. Patient denying perceptual disturbances reporting her mood being "okay" wanted to be discharged home when she is better and no longer requesting to be transferred to all referred to an assisted living facility. Patient's visiting landscape and yardwork laborer states that patient appearing back to baseline although did note patient having some speech impediment that was not there before and the patient was more functional prior to this episode. Review of Systems Except as stated in HPI: all other systems reviewed are Neg Mental Status Examination Appearance: Appropriate Consciousness: Alert Orientation: Person, Place Speech: Speech impediment Language: Adequate Fund of Knowledge: Inadequate Attention and Concentration: Adequate Memory: Unremarkable Mood: Other ("Fine") Affect: Blunt Thought Process & Associations: Other ([place]) Thought Content: Appropriate Hallucination Type: None Delusion Type: Bizarre Suicidal Ideation: No Suicidal Plan: No Suicidal Intention: No Homicidal Ideation: No Homicidal Plan: No Homicidal Intention: No Insight: Fair Judgment: Impulsive Results Vitals/IOs Vital Signs Date Time Temp Pulse Resp B/P (MAP) Pulse Ox O2 Delivery O2 Flow Rate FiO2 12/29/17 16:56 97.3 85 16 121/60 (80) 97 Intake and Output 12/29/17 12/29/17 12/30/17 08:00 16:00 00:00 Intake Total 240 ml 240 ml Balance 240 ml 240 ml Assessment & Plan Problem List: (1) Schizophrenia ICD Codes: F20.9 - Schizophrenia, unspecified Assessment & Plan Patient this time noted to endorse feeling better although continues to have difficulty with ambulation and continues to have urinary incontinence at times but noted to be getting up going to the restroom on her own now. As per report by patient's visiting landscape and yardwork laborer, speech impediment was something that was noted that would patient did not have prior to admission. Suspect of probable stroke in light of speech impediment along with difficulty with ambulation. We will order a brain MRI to evaluate for possible recent stroke. We will continue current treatment. Continue monitor mood and behavior. Discharge planning in progress. Justification for Cont. Inpt. At risk for further decompensation if at lower level of care. Discharge Planning Patient return back to her residence was psychiatrically stable. Timothy Balderas MD December 29, 2017 17:00
[2017-12-29] MEDS: PHENobarbital 32.4 MG TAB PO SCH (21:02)
[2017-12-30 06:00] VITALS: BP 152/65; PULSE 78; RESP 19; TEMP 98; O2SAT 92
[2017-12-30] MEDS: QUEtiapine FUMARATE 25 MG TAB PO SCH ×2 (09:00→21:32)
[2017-12-30] MEDS: GABAPENTIN 100 MG CAP PO SCH ×4 (09:00→21:31)
--- NOTE | 2017-12-30 15:27 | HHI.PYPN ---
Subjective Remarks Patient seen for follow, chart reviewed. Discussion nursing staff reported the patient eating well, still be noted to be incontinent but ambulating more with walker toward the bathroom. Patient was found lying hospital bed noted B, cooperative. Patient states that she is being still having difficulty making it to the restroom in time, continues to have difficulty with ambulation but uses walker. Patient states her mood has been "fine" reporting that she would like to be also go back home but was reiterated importance of proper rehabilitation in case it is required after her hospitalization which she acknowledged. Patient denies any perceptional service of delusions. Patient states that she has noticed that her speech has been improving. Review of Systems Except as stated in HPI: all other systems reviewed are Neg Mental Status Examination Appearance: Appropriate Consciousness: Alert Orientation: Person, Place Speech: Speech impediment Language: Adequate Fund of Knowledge: Inadequate Attention and Concentration: Adequate Memory: Unremarkable Mood: Other ("Fine") Affect: Blunt Thought Process & Associations: Other ([place]) Thought Content: Appropriate Hallucination Type: None Delusion Type: Bizarre Suicidal Ideation: No Suicidal Plan: No Suicidal Intention: No Homicidal Ideation: No Homicidal Plan: No Homicidal Intention: No Insight: Fair Judgment: Impulsive Results Vitals/IOs Vital Signs Date Time Temp Pulse Resp B/P (MAP) Pulse Ox O2 Delivery O2 Flow Rate FiO2 12/30/17 06:00 98.0 78 19 152/65 (94) 92 Intake and Output 12/30/17 12/30/17 12/31/17 08:00 16:00 00:00 Intake Total 360 ml 360 ml Balance 360 ml 360 ml Assessment & Plan Problem List: (1) Schizophrenia ICD Codes: F20.9 - Schizophrenia, unspecified Assessment & Plan Patient this time reporting stable mood, denying perceptual disturbances, continues to have speech difficulty as well as with ambulation. MRI still pending. Continue current treatment. We will continue to monitor with behavior. We will order repeat labs as well as phenobarbital levels. Patient likely will require transition to rehabilitation program as patient at this time continues to require assistance for ambulation as well as incontinence. Discharge planning in progress. Justification for Cont. Inpt. At risk of further decompensation at lower level of care. Timothy Balderas MD December 30, 2017 15:27
[2017-12-30 17:49] LABS: AUTOMATED NEUTROPHIL # 1.9 TH/MM3 (1.8-7.7); BASOPHIL % 0.5 % (0.0-2.0); EOSINOPHIL # 0.2 TH/MM3 (0-0.4); EOSINOPHIL % 4.7 % (0.0-4.0); HEMATOCRIT 42.4 % (35.0-46.0); HEMOGLOBIN 14.2 GM/DL (11.6-15.3); LYMPH % 42.8 % (9.0-44.0); LYMPHOCYTE # 2.1 TH/MM3 (1.0-4.8); MEAN CELL VOLUME 98.8 FL (80.0-100.0); MEAN CORPUSCULAR HEMOGLOBIN 33.1 PG (27.0-34.0); MEAN CORPUSCULAR HGB CONC 33.5 % (32.0-36.0); MEAN PLATELET VOLUME 9.4 FL (7.0-11.0); MONO % 12.7 % (0.0-8.0); MONOCYTE # 0.6 TH/MM3 (0-0.9); NEUT % 39.3 % (16.0-70.0); PLATELET COUNT 177 TH/MM3 (150-450); RED BLOOD COUNT 4.29 MIL/MM3 (4.00-5.30); RED CELL DISTRIBUTION WIDTH 13.2 % (11.6-17.2); WHITE BLOOD COUNT 4.9 TH/MM3 (4.0-11.0)
[2017-12-30 18:01] LABS: ALBUMIN 2.8 GM/DL (3.4-5.0); BICARBONATE 30.2 MEQ/L (21.0-32.0); CALCIUM 9.2 MG/DL (8.5-10.1); CREATININE 1.23 MG/DL (0.50-1.00)
[2017-12-30 18:07] LABS: DIRECT BILIRUBIN ADULT 0.1 MG/DL (0.0-0.2); INDIRECT BILIRUBIN 0.2 MG/DL (0.0-0.8); TOTAL BILIRUBIN ADULT 0.3 MG/DL (0.2-1.0); TOTAL PROTEIN 6.5 GM/DL (6.4-8.2)
[2017-12-30 18:22] VITALS: BP 127/85; PULSE 81; RESP 20; TEMP 97.9; O2SAT 96
--- NOTE | 2017-12-30 20:46 | RADRPT ---
EXAM DATE/TIME: 12/30/2017 19:26 [place] COMPARISON: CT BRAIN W/O CONTRAST, December 29, 2017, 11:43. INDICATIONS : Stroke. MEDICAL HISTORY : Carcinoma, breast. SURGICAL HISTORY : Cholecystectomy. ENCOUNTER: Initial ACUITY: 1 day PAIN SCORE: 2/10 LOCATION: Bilateral cranial TECHNIQUE: Multiplanar, multisequence MRI of the brain was performed without contrast. FINDINGS: CEREBRUM: The ventricles are normal for age. There is a small patent cava septum pellucidum seen anteriorly. No evidence of midline shift, mass lesion, hemorrhage or acute infarction. No extraaxial fluid collect ions are seen. The pituitary gland and suprasellar cistern are normal in configuration. WHITE MATTER: There are a few minimal areas of focal signal abnormality within the cerebral white matter. POSTERIOR FOSSA: The cerebellum and brainstem are intact. The 4th ventricle is midline. The cerebellopontine angle is unremarkable. The cerebellar tonsils are normal in position. DIFFUSION IMAGING: No focal areas of restricted diffusion are seen. No evidence of acute infarction. EXTRACRANIAL: The visualized portions of the orbits and paranasal sinuses are unremarkable. There are defects from prior temporal craniotomies. There is prominent hyperostosis frontalis interna. CONCLUSION: 1. No acute abnormality seen. 2. Scattered minimal areas of signal abnormality within the cerebral white matter likely secondary to small vessel ischemic change. Rasheed Adams MD on December 30, 2017 at 20:41 Board Certified Radiologist. This report was verified electronically.
[2017-12-30] MEDS: PHENobarbital 32.4 MG TAB PO SCH (21:31)
[2017-12-31 06:33] VITALS: BP 122/71; PULSE 81; RESP 16; TEMP 97.1; O2SAT 95
[2017-12-31] MEDS: GABAPENTIN 100 MG CAP PO SCH ×4 (09:16→21:40)
[2017-12-31] MEDS: QUEtiapine FUMARATE 25 MG TAB PO SCH ×2 (09:16→21:41)
--- NOTE | 2017-12-31 12:21 | PD.TTN ---
Patient Problems 1. Discharge planning 2. Medication compliance 3. Knowledge deficit 4. Lack of coping skills Progress Toward Goals Provider Present: Dr. Vladislav Balderas Provider Input: 12/29/2017 patient medication 12/27/2017; patient's medication will be discussed and adjusted to address her needs Nurse(s) Present: RN Nurse(s) Input: 12/29/2017; Patient is redirectable, encourged with care, and taking her medication 12/27/2017; per RN patient is depressed, requires assistance with basic needs/care Psychiatric Counselors Present: LUANNE Beatty Psych Therapist Input: 12/31/2017; patient has shown improvement with mood, and care 12/27/2017; counselor will contact NOK or caregiver to discuss outpatient needs Group Spec/RT/OT/CRABTREE Present: Tirso Carbone OT Group Spec/RT/OT/CRABTREE Input: 12/29/2017; patient is unable to attend groups 12/27/2017; patient is not appropriate at this time for groups do to her mental status Documentation Scribe: Christelle Schofield December 31, 2017 12:21
--- NOTE | 2017-12-31 15:34 | HHI.PYPN ---
Subjective Remarks Patient seen for follow, chart reviewed. Discussion nursing staff reported the patient compliant with medications, noted to be more ambulatory to the restroom but continues to have some incontinence. Patient was found sitting in hospital bed eating breakfast noted B, cooperative. Patient states that she is sleeping well, her mood has been "good" and feels that her speech is improving but continues to have incontinence by attempting to ambulate to the bathroom in time she is currently continues to have some difficulty with. Patient denies any perceptual disturbances or delusions at this time tolerating medications well. Patient agrees to transition to a health and rehab facility she continues to require assistance for ADLs. Review of Systems Except as stated in HPI: all other systems reviewed are Neg Mental Status Examination Appearance: Appropriate Consciousness: Alert Orientation: Person, Place Speech: Speech impediment (Improving) Language: Adequate Fund of Knowledge: Inadequate Attention and Concentration: Adequate Memory: Unremarkable Mood: Other ("Fine") Affect: Blunt Thought Process & Associations: Other ([place]) Thought Content: Appropriate Hallucination Type: None Delusion Type: Bizarre Suicidal Ideation: No Suicidal Plan: No Suicidal Intention: No Homicidal Ideation: No Homicidal Plan: No Homicidal Intention: No Insight: Fair Judgment: Impulsive Results Labs Labs reviewed Test 12/30/17 17:10 White Blood Count 4.9 TH/MM3 Red Blood Count 4.29 MIL/MM3 Hemoglobin 14.2 GM/DL Hematocrit 42.4 % Mean Corpuscular Volume 98.8 FL Mean Corpuscular Hemoglobin 33.1 PG Mean Corpuscular Hemoglobin Concent 33.5 % Red Cell Distribution Width 13.2 % Platelet Count 177 TH/MM3 Mean Platelet Volume 9.4 FL Neutrophils (%) (Auto) 39.3 % Lymphocytes (%) (Auto) 42.8 % Monocytes (%) (Auto) 12.7 % Eosinophils (%) (Auto) 4.7 % Basophils (%) (Auto) 0.5 % Neutrophils # (Auto) 1.9 TH/MM3 Lymphocytes # (Auto) 2.1 TH/MM3 Monocytes # (Auto) 0.6 TH/MM3 Eosinophils # (Auto) 0.2 TH/MM3 Basophils # (Auto) 0.0 TH/MM3 CBC Comment DIFF FINAL Differential Comment Blood Urea Nitrogen 23 MG/DL Creatinine 1.23 MG/DL Random Glucose 100 MG/DL Total Protein 6.5 GM/DL Albumin 2.8 GM/DL Calcium Level 9.2 MG/DL Alkaline Phosphatase 125 U/L Aspartate Amino Transf (AST/SGOT) 25 U/L Alanine Aminotransferase (ALT/SGPT) 52 U/L Total Bilirubin 0.3 MG/DL Direct Bilirubin 0.1 MG/DL Sodium Level 143 MEQ/L Potassium Level 5.1 MEQ/L Chloride Level 107 MEQ/L Carbon Dioxide Level 30.2 MEQ/L Anion Gap 6 MEQ/L Estimat Glomerular Filtration Rate 43 ML/MIN Indirect Bilirubin 0.2 MG/DL Phenobarbital Level 6.6 MCG/ML Vitals/IOs Vital Signs Date Time Temp Pulse Resp B/P (MAP) Pulse Ox O2 Delivery O2 Flow Rate FiO2 12/31/17 06:33 97.1 81 16 122/71 (88) 95 Intake and Output 12/31/17 12/31/17 01/01/18 08:00 16:00 00:00 Intake Total 0 ml 600 ml Balance 0 ml 600 ml Assessment & Plan Problem List: (1) Schizophrenia ICD Codes: F20.9 - Schizophrenia, unspecified Assessment & Plan Patient continues to require further rehabilitation, currently working with physical therapy. Recent labs showed patient with worsening renal function along with continued incontinence. We will order a hospitalist consult for evaluation for recommendations. We will continue current treatment. Discharge planning in progress. Justification for Cont. Inpt. At risk of further decompensation at lower level of care. Discharge Planning Patient was discharged to health and rehab facility. Timothy Balderas MD December 31, 2017 15:34
[2017-12-31 18:05] VITALS: BP 146/70; PULSE 87; RESP 16; TEMP 98.2; O2SAT 94
[2017-12-31] MEDS: PHENobarbital 32.4 MG TAB PO SCH (21:40)
[2018-01-01 06:00] VITALS: BP 113/56; PULSE 86; RESP 17; TEMP 98.2; O2SAT 96
[2018-01-01] MEDS: GABAPENTIN 100 MG CAP PO SCH ×4 (08:15→21:40)
[2018-01-01] MEDS: QUEtiapine FUMARATE 25 MG TAB PO SCH ×2 (08:15→21:40)
--- NOTE | 2018-01-01 08:22 | PD.CONS ---
HPI Service [facility] Consult Requested By Dr. Balderas Reason for Consult Elevated creatinine, incontinence, difficulty ambulating. Primary Care Physician No Primary Care Physician Diagnoses: History of Present Illness 67-year-old female with past medical history significant for schizophrenia, epilepsy, tardive dyskinesia, legally blind, and chronic kidney disease, breast cancer who presented to the emergency department on 12/21 due to intractable nausea, vomiting, and diarrhea. Patient was admitted to observation for hypokalemia as well as urinary retention. Patient was seen and evaluated by GI services and underwent EGD on 12/23 with findings of esophagitis, erythematous gastritis, and duodenal inflammation for which biopsies were preformed. During patient stay in observation unit she was refusing medications as well as care and with delusional behavior. Psychiatry was consulted to assist for evaluation given patient's history of schizophrenia and she was placed under [place] act. Patient underwent EEG on 12/24 which was negative for epileptiform features. She was cleared medically and discharged to inpatient medical psychiatry unit. [facility] is has been consulted due to increasing creatinine, difficulty ambulating, and incontinence. Patient is seen and evaluated in her room sitting up in bed eating breakfast this morning. She is awake, alert, oriented to self, place, and time. She is able to tell me that she sees a kidney doctor here in [facility] but does not know his name. She denies any fevers, chills, nausea, vomiting, diarrhea, shortness of breath, cough, chest pain, abdominal pain, suprapubic pain, dysuria or hematuria. She reports that at times she needs help getting out of bed to go to the bathroom and sometimes will make it to the bathroom and other times well what her brief. She also tells me that she is able to get out of bed with the assistance of the nurse as well as walker and is able to ambulate pretty well. Discussed with nurse reports patient has been ambulating with the assistance of a walker. No other complaints or concerns at this moment. Review of Systems Except as stated in HPI: all other systems reviewed are Neg Past Family Social History Allergies: Coded Allergies: chlorpromazine (Unverified Allergy, Mild, 03/30/17) Past Medical History Schizophrenia Epilepsy Tardive dyskinesia Seizure Legally blind Breast cancer status post lump Chronic kidney disease Past Surgical History Right breast lumpectomy Cholecystectomy Brain surgery 5 secondary to fall as a child. Reported Medications Reported Meds & Active Scripts Active Haldol Inj (Haloperidol Lactate) 5 Mg/Ml Inj 5 Mg IM Q8HR PRN Seroquel (Quetiapine Fumarate) 25 Mg Tab 25 Mg PO BID@,12 [Metoclopramide Inj] 10 MG/2 ML Inj 5 Mg IV Q8H Promethegan Supp (Promethazine HCl) 25 Mg Supp 25 Mg RECTAL Q6H PRN Pantoprazole (Pantoprazole Sodium) 40 Mg Tab 40 Mg PO DAILY Reported Thioridazine (Thioridazine HCl) 100 Mg Tab 100 Mg PO HS Phenobarbital 32.4 Mg Tab 64.8 Mg PO HS Gabapentin 100 Mg Cap 200 Mg PO QID Active Ordered Medications Current Medications Medications (Trade) Dose Ordered Sig/Cristi Route Start Time Stop Time Status Last Admin (Neurontin) 200 mg QID PO 12/25/17 09:00 01/01/18 08:15 (Haldol Inj) 5 mg Q8HR PRN IM 12/24/17 22:00 (PHENobarbital) 64.8 mg HS PO 12/24/17 22:00 12/31/17 21:40 (Ativan) 1 mg Q6H PRN PO 12/24/17 22:15 (Ativan Inj) 1 mg Q6H PRN IM 12/24/17 22:15 (Ativan) 0.5 mg Q12H PRN PO 12/24/17 22:15 (Ativan Inj) 0.5 mg Q12H PRN IM 12/24/17 22:15 (Tylenol) 650 mg Q4H PRN PO 12/24/17 22:15 (Milk Of Magnesia Liq) 30 ml DAILY PRN PO 12/24/17 22:15 (Mag-Al Plus Susp Liq) 30 ml Q6H PRN PO 12/24/17 22:15 (SEROquel) 25 mg DAILY PO 12/26/17 09:00 01/01/18 08:15 (SEROquel) 50 mg HS PO 12/25/17 21:00 12/31/17 21:41 Family History Mother: Breast cancer Sister: Pulmonary embolism/DVT Social History Patient denies any alcohol, tobacco, or illicit drug use. She reports that she lives alone in an apartment. Physical Exam Vital Signs Vital Signs Date Time Temp Pulse Resp B/P (MAP) Pulse Ox O2 Delivery O2 Flow Rate FiO2 01/01/18 06:00 98.2 86 17 113/56 (75) 96 12/31/17 18:05 98.2 87 16 146/70 (95) 94 Physical Exam GENERAL: This is an obese female, well-developed. In no acute distress. SKIN: No rashes. Cool and dry. HEAD: Atraumatic. Normocephalic. EYES: Pupils equal round and reactive. No scleral icterus. No injection or drainage. ENT: Nose without bleeding. Throat without erythema. Airway patent. NECK: Trachea midline. No JVD. Supple, nontender. CARDIOVASCULAR: Regular rate and rhythm without murmurs, gallops, or rubs. RESPIRATORY: Clear to auscultation. Breath sounds equal bilaterally. No wheezes , rales, or rhonchi. GASTROINTESTINAL: Abdomen soft, non-tender, nondistended. No palpable masses. No guarding. Normal active bowel sounds. No suprapubic tenderness or pain with palpation. MUSCULOSKELETAL: Extremities without clubbing, cyanosis, or edema. No joint tenderness, effusion, or edema noted. No calf tenderness. NEUROLOGICAL: Awake and alert, oriented 3. Cranial nerves II through XII intact. Motor and sensory grossly within normal limits. 4/5 muscle strength in all muscle groups. Tardive dyskinesia noted with, involuntary lip movements. Result Diagram: 12/30/17170912/30/17 171 Imaging Last Impressions Brain MRI 12/30/17 0000 Signed Impressions: Service Date/Time: December 19:26 - CONCLUSION: 1. No acute abnormality seen. 2. Scattered minimal areas of signal abnormality within the cerebral white matter likely secondary to small vessel ischemic change. Rasheed Adams MD Head CT 12/29/17 0000 Signed Impressions: Service Date/Time: Friday, December 29, 2017 11:43 - CONCLUSION: 1. No evidence of acute intracranial process. 2. Surgical calcific deposits which may be the result of previous inflammatory disease. 3. Bilateral temporal craniotomy defects. 4. No evidence of acute infarct, hemorrhage, mass or edema. Warren Gonzalez MD Assessment and Plan Assessment and Plan 67-year-old female with past medical history significant for schizophrenia, epilepsy, tardive dyskinesia, legally blind, and chronic kidney disease, breast cancer who presented to the emergency department on 12/21 due to intractable nausea, vomiting, and diarrhea. Schizophrenia -Treatment per psychiatry, greatly appreciated Chronic kidney disease-Baseline creatinine since 2002 around 1.4 -Lab work from 12/30 reviewed, BUN 23, creatinine 1.23, GFR 43 suspect slight increase in creatinine secondary to mild dehydration -Lab work this morning we checked, BUN 21, creatinine 0.96, GFR 58, improved -Avoid nephrotoxins, monitor renal function periodically. N/V/D, abd pain -Patient seen and evaluated by GI, underwent EGD on 12/23: findings erythematous gastritis in the gastric antrum, duodenal inflammation found in the bulb and the second portion of the duodenum, hiatal hernia. -Will need to follow-up with GI for biopsy results, EGD in [address] also recommending CT versus outpatient colonoscopy once discharged. -No more vomiting, nausea, diarrhea or abdominal pain reported. GI recommendations for, antiemetics as needed, anti-reflux including PPI. -Continue Protonix 40 mg daily, PO zofran as needed. Difficulty ambulate -Patient has been seen and evaluated by physical therapy, assessment reviewed , patient appears to be functioning at optimal status, no continued skilled physical therapy services indicated. -Continue to encourage ambulation with the use of a walker, fall precautions. Urinary incontinence - ? if this is functional incontinence since she reports needing help getting out of bed to use bathroom. - Patient reports she is aware of when she needs to urinate however at times may not make it into the bathroom. Afebrile, no leukocytosis. - UA collected today positive for occult blood, nitrite, leukocyte esterase, WBC clumps with bacteria in the urine. - Start PO Ceftin 250mg BID, follow urine culture and adjust antibiotic accordingly. DVT prophylaxis-subcu heparin Discussed with Dr. Saab, patient and nurse. Thank you for this consultation, will continue to follow along. Rik Avila January 01, 2018 08:22
[2018-01-01] MEDS ORDERED: ONDANSETRON ODT 4 MG TAB PO PRN (10:45)
[2018-01-01 10:55] LABS: BICARBONATE 31.6 MEQ/L (21.0-32.0); CALCIUM 8.8 MG/DL (8.5-10.1); CREATININE 0.96 MG/DL (0.50-1.00)
[2018-01-01 14:49] LABS: BILIRUBIN, URINE NEGATIVE (NEG); BLOOD, URINE SMALL (NEG); GLUCOSE,URINE NEG (NEG); KETONE, URINE NEG (NEG); NITRITE,URINE POS (NEG); URINE COLOR YELLOW (YELLW/STRAW); URINE LEUKOCYTE ESTERASE LARGE (NEG)
[2018-01-01 14:50] LABS: WHITE BLOOD CELL CLUMPS MANY
[2018-01-01 14:51] LABS: BACTERIA, URINE MANY /hpf; SQUAMOUS EPITHELIAL CELL URINE 1 /hpf (0-5)
--- NOTE | 2018-01-01 15:38 | HHI.PYPN ---
Subjective Remarks Reviewed electronic medical record and discussed case with staff. Nurse reports that the patient is doing a little better however, she still not has been participating in any group activities. She has been starting to do more for herself and has gotten herself to the bathroom on several occasions. She reports that the patient has been pleasant and cooperative. Follow-up was conducted in patient's room with nurse present. Patient reports that she has been sleeping well and has had a good appetite. She did express some anxiety that she been trying to get a hold of her sister and thus far had not reached her. Mental Status Examination Appearance: Appropriate Consciousness: Alert Orientation: Person, Place Speech: Speech impediment (Improving) Language: Adequate Fund of Knowledge: Inadequate Attention and Concentration: Adequate Memory: Unremarkable Mood: Other ("Fine") Affect: Blunt Thought Process & Associations: Other ([place]) Thought Content: Appropriate Hallucination Type: None Delusion Type: Bizarre Suicidal Ideation: No Suicidal Plan: No Suicidal Intention: No Homicidal Ideation: No Homicidal Plan: No Homicidal Intention: No Insight: Fair Judgment: Impulsive Results Labs Test 01/01/18 08:58 01/01/18 12:40 Blood Urea Nitrogen 21 MG/DL Creatinine 0.96 MG/DL Random Glucose 91 MG/DL Calcium Level 8.8 MG/DL Sodium Level 144 MEQ/L Potassium Level 4.0 MEQ/L Chloride Level 107 MEQ/L Carbon Dioxide Level 31.6 MEQ/L Anion Gap 5 MEQ/L Estimat Glomerular Filtration Rate 58 ML/MIN Urine Color YELLOW Urine Turbidity CLOUDY Urine pH 6.0 Urine Specific [place] 1.012 Urine Protein 30 mg/dL Urine Glucose (UA) NEG mg/dL Urine Ketones NEG mg/dL Urine Occult Blood SMALL Urine Nitrite POS Urine Bilirubin NEGATIVE Urine Urobilinogen LESS THAN 2.0 MG/DL Urine Leukocyte Esterase LARGE Urine RBC 1 /hpf Urine WBC /hpf Urine WBC Clumps MANY Urine Squamous Epithelial Cells 1 /hpf Urine Bacteria MANY /hpf Microscopic Urinalysis Comment CULTURE INDICATED Date/Time Source Procedure Growth Status 01/01/18 12:40 Urine Clean Catch Urine Culture Pending Received Vitals/IOs Vital Signs Date Time Temp Pulse Resp B/P (MAP) Pulse Ox O2 Delivery O2 Flow Rate FiO2 01/01/18 06:00 98.2 86 17 113/56 (75) 96 Intake and Output 01/01/18 01/01/1818 08:00 16:00 00:00 Intake Total 360 ml 840 ml Balance 360 ml 840 ml Assessment & Plan Problem List: (1) Schizophrenia ICD Codes: F20.9 - Schizophrenia, unspecified Assessment & Plan Estimated LOS: Continue with treatment plan. Attending psychiatrist will be back on Wednesday to reevaluate. Days Justification for Cont. Inpt. Moving this patient to a lower level of care would likely result in decompensation. Antionette Oviedo January 01, 2018 15:38
[2018-01-01 17:42] VITALS: BP 136/62; PULSE 86; RESP 17; TEMP 97.9; O2SAT 94
[2018-01-01] MEDS: HEPARIN SODIUM - SQ 10,000 UNITS/ML VIAL SQ SCH (21:39)
[2018-01-01] MEDS: CEFUROXIME AXETIL 250 MG TAB PO SCH (21:40)
[2018-01-01] MEDS: PHENobarbital 32.4 MG TAB PO SCH (21:40)
[2018-01-02 06:00] VITALS: BP 119/59; PULSE 76; RESP 16; TEMP 98.2; O2SAT 97
[2018-01-02] MEDS: GABAPENTIN 100 MG CAP PO SCH ×4 (08:29→21:00)
[2018-01-02] MEDS: HEPARIN SODIUM - SQ 10,000 UNITS/ML VIAL SQ SCH ×2 (08:29→21:00)
[2018-01-02] MEDS: PANTOPRAZOLE SOD 40 MG DELAYED RELEASE TAB PO SCH (08:29)
[2018-01-02] MEDS: QUEtiapine FUMARATE 25 MG TAB PO SCH ×2 (08:29→21:00)
[2018-01-02] MEDS: CEFUROXIME AXETIL 250 MG TAB PO SCH ×2 (08:29→21:00)
--- NOTE | 2018-01-02 08:31 | HHI.PR ---
Subjective Remarks Follow-up visit for CKD, and UTI. Spoke with nurse reports patient has been getting up and having meals in the chair, no other events overnight or this morning reported. Patient is seen and examined sitting on the side of the bed awake, alert, and in no acute distress. She denies any fevers, chills, nausea, vomiting, diarrhea, shortness of breath, cough, abdominal pain or discomfort. She reports that she is no longer having urinary incontinence and is able to get to the bathroom on time. No other acute complaints or concerns voiced. Objective Vitals Vital Signs Date Time Temp Pulse Resp B/P (MAP) Pulse Ox O2 Delivery O2 Flow Rate FiO2 01/01/18 17:42 97.9 86 17 136/62 (86) 94 I/O 01/01/18 01/01/18 01/01/18 01/02/18 01/02/18 01/02/18 07:00 15:00 23:00 07:00 15:00 23:00 Intake Total 1200 ml 720 ml Balance 1200 ml 720 ml Intake Oral 1200 ml 720 ml # Voids 2 Result Diagram: 12/30/17 1710 01/01/18 0858 Imaging Last Impressions Brain MRI 12/30/17 0000 Signed Impressions: Service Date/Time: December 19:26 - CONCLUSION: 1. No acute abnormality seen. 2. Scattered minimal areas of signal abnormality within the cerebral white matter likely secondary to small vessel ischemic change. Rasheed Adams MD Head CT 12/29/17 0000 Signed Impressions: Service Date/Time: Friday, December 29, 2017 11:43 - CONCLUSION: 1. No evidence of acute intracranial process. 2. Surgical calcific deposits which may be the result of previous inflammatory disease. 3. Bilateral temporal craniotomy defects. 4. No evidence of acute infarct, hemorrhage, mass or edema. Warren Gonzalez MD Objective Remarks GENERAL: This is an obese female, well-developed. In no acute distress. SKIN: Cool and dry. HEAD: Atraumatic. EYES: Pupils equal round. No scleral icterus. No injection or drainage. ENT: Nose without bleeding. Airway patent. NECK: Trachea midline. No JVD. CARDIOVASCULAR: Regular rate and rhythm without murmurs, gallops, or rubs. RESPIRATORY: Clear to auscultation. Breath sounds equal bilaterally. No wheezes , rales, or rhonchi. GASTROINTESTINAL: Abdomen soft, non-tender, nondistended. No palpable masses. No guarding. Normal active bowel sounds. MUSCULOSKELETAL: Extremities without clubbing, cyanosis, or edema. No calf tenderness. NEUROLOGICAL: Awake and alert, oriented 3. Cranial nerves II through XII intact. Motor and sensory grossly within normal limits. 4/5 muscle strength in all muscle groups. Tardive dyskinesia noted with, involuntary lip movements. A/P Assessment and Plan 67-year-old female with past medical history significant for schizophrenia, epilepsy, tardive dyskinesia, legally blind, and chronic kidney disease, breast cancer who presented to the emergency department on 12/21 due to intractable nausea, vomiting, and diarrhea. Schizophrenia -Treatment per psychiatry, greatly appreciated Chronic kidney disease-Baseline creatinine since 2002 around 1.4 -Lab work from 12/30 reviewed, BUN 23, creatinine 1.23, GFR 43 suspect slight increase in creatinine secondary to mild dehydration -Lab 01/01, BUN 21, creatinine 0.96, GFR 58, improved -Avoid nephrotoxins, monitor renal function periodically. N/V/D, abd pain -Patient seen and evaluated by GI, underwent EGD on 12/23: findings erythematous gastritis in the gastric antrum, duodenal inflammation found in the bulb and the second portion of the duodenum, hiatal hernia. -Will need to follow-up with GI for biopsy results, EGD in [address] also recommending CT versus outpatient colonoscopy once discharged. -No more vomiting, nausea, diarrhea or abdominal pain reported. GI recommendations for, antiemetics as needed, anti-reflux including PPI. -Continue Protonix 40 mg daily, PO zofran as needed. Eating well with no reports of nausea or vomiting. Difficulty ambulate -Patient has been seen and evaluated by physical therapy, assessment reviewed , patient appears to be functioning at optimal status, no continued skilled physical therapy services indicated. -Continue to encourage ambulation with the use of a walker, fall precautions. Urinary incontinence - ? if this is functional incontinence since she reports needing help getting out of bed to use bathroom. - Patient reports she is aware of when she needs to urinate however at times may not make it into the bathroom. Afebrile, no leukocytosis. - UA collected today positive for occult blood, nitrite, leukocyte esterase, WBC clumps with bacteria in the urine. - Continue PO Ceftin 250mg BID, follow urine culture and adjust antibiotic accordingly. DVT prophylaxis-subcu heparin Discussed with nurse. Rik Avila January 02, 2018 08:31
--- NOTE | 2018-01-02 10:22 | HHI.PYPN ---
Subjective Remarks Chart reviewed and patient discussed with ALDO Garcia. Patient is in her hospital bed and finishing her breakfast. Patient states that she is willing to get out of bed and eat her meals in her chair. She denies AVH and is engaging in conversation. She states that she feels that she is getting better since she started taking her medications again. She is pleasant and want to participate in her care. Sleeping and eating well. 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) Language: Adequate Fund of Knowledge: Inadequate Attention and Concentration: Adequate Memory: Unremarkable Mood: Appropriate, Good Affect: Appropriate, Euthymic Thought Process & Associations: Intact Thought Content: Appropriate Hallucination Type: None Delusion Type: None Suicidal Ideation: No Suicidal Plan: No Suicidal Intention: No Homicidal Ideation: No Homicidal Plan: No Homicidal Intention: No Insight: Fair Judgment: Impulsive Results Labs Test 01/01/18 12:40 Urine Color YELLOW Urine Turbidity CLOUDY Urine pH 6.0 Urine Specific [place] 1.012 Urine Protein 30 mg/dL Urine Glucose (UA) NEG mg/dL Urine Ketones NEG mg/dL Urine Occult Blood SMALL Urine Nitrite POS Urine Bilirubin NEGATIVE Urine Urobilinogen LESS THAN 2.0 MG/DL Urine Leukocyte Esterase LARGE Urine RBC 1 /hpf Urine WBC /hpf Urine WBC Clumps MANY Urine Squamous Epithelial Cells 1 /hpf Urine Bacteria MANY /hpf Microscopic Urinalysis Comment CULTURE INDICATED Date/Time Source Procedure Growth Status 01/01/18 12:40 Urine Clean Catch Urine Culture Pending Received Vitals/IOs Vital Signs Date Time Temp Pulse Resp B/P (MAP) Pulse Ox O2 Delivery O2 Flow Rate FiO2 01/02/18 06:00 98.2 76 16 119/59 (79) 97 Intake and Output 01/02/18 01/02/18 01/03/18 08:00 16:00 00:00 Intake Total 720 ml Balance 720 ml Assessment & Plan Problem List: (1) Schizophrenia ICD Codes: F20.9 - Schizophrenia, unspecified Assessment & Plan Estimated LOS: days Justification for Cont. Inpt. Moving patient to a lower level of care may result in her decompensation. Discharge planning in progress. Nieves Bender January 02, 2018 10:22
[2018-01-02 17:51] VITALS: BP 108/66; PULSE 85; RESP 18; TEMP 97; O2SAT 98
[2018-01-02] MEDS: PHENobarbital 32.4 MG TAB PO SCH (21:00)
[2018-01-03 06:00] VITALS: BP 104/59; PULSE 81; RESP 18; TEMP 97.2; O2SAT 94
--- NOTE | 2018-01-03 08:07 | HHI.PR ---
Subjective Remarks Follow-up visit for CKD, and UTI. Spoke with nurse who does not report any events overnight or this morning. Patient is seen and examined sitting up in chair eating breakfast this morning in no acute distress. She denies any fevers , chills, nausea, vomiting, diarrhea, dysuria, incontinence, cough, shortness of breath or chest pain. She voices no acute concerns or complaints this morning. Objective Vitals Vital Signs Date Time Temp Pulse Resp B/P (MAP) Pulse Ox O2 Delivery O2 Flow Rate FiO2 01/03/18 06:00 97.2 81 18 104/59 (74) 94 01/02/18 17:51 97.0 85 18 108/66 (80) 98 I/O 01/02/18 01/02/18 01/02/18 01/03/18 01/03/18 01/03/18 07:00 15:00 23:00 07:00 15:00 23:00 Intake Total 720 ml 1320 ml 240 ml Balance 720 ml 1320 ml 240 ml Intake Oral 720 ml 1320 ml Oral Supplement 240 ml # Voids 3 4 Result Diagram: 12/30/17 1710 01/01/18 0858 Imaging Last Impressions Brain MRI 12/30/17 0000 Signed Impressions: Service Date/Time: December 19:26 - CONCLUSION: 1. No acute abnormality seen. 2. Scattered minimal areas of signal abnormality within the cerebral white matter likely secondary to small vessel ischemic change. Rasheed Adams MD Head CT 12/29/17 0000 Signed Impressions: Service Date/Time: Friday, December 29, 2017 11:43 - CONCLUSION: 1. No evidence of acute intracranial process. 2. Surgical calcific deposits which may be the result of previous inflammatory disease. 3. Bilateral temporal craniotomy defects. 4. No evidence of acute infarct, hemorrhage, mass or edema. Warren Gonzalez MD Objective Remarks GENERAL: This is an obese female, well-developed. In no acute distress. SKIN: Cool and dry. HEAD: Atraumatic. EYES: Pupils equal round. No scleral icterus. No injection or drainage. ENT: Nose without bleeding. Airway patent. NECK: Trachea midline. No JVD. CARDIOVASCULAR: Regular rate and rhythm without murmurs, gallops, or rubs. RESPIRATORY: Clear to auscultation. Breath sounds equal bilaterally. No wheezes , rales, or rhonchi. GASTROINTESTINAL: Abdomen soft, non-tender, nondistended. No palpable masses. No guarding. Normal active bowel sounds. MUSCULOSKELETAL: Extremities without clubbing, cyanosis, or edema. No calf tenderness. NEUROLOGICAL: Awake and alert, oriented 3. Cranial nerves II through XII intact. Motor and sensory grossly within normal limits. 4/5 muscle strength in all muscle groups. Tardive dyskinesia noted with, involuntary lip movements. A/P Assessment and Plan 67-year-old female with past medical history significant for schizophrenia, epilepsy, tardive dyskinesia, legally blind, and chronic kidney disease, breast cancer who presented to the emergency department on 12/21 due to intractable nausea, vomiting, and diarrhea. Schizophrenia -Treatment per psychiatry, greatly appreciated. Possibly discharge today depending on psychiatry. Chronic kidney disease-Baseline creatinine since 2002 around 1.4 -Lab work from 12/30 reviewed, BUN 23, creatinine 1.23, GFR 43 suspect slight increase in creatinine secondary to mild dehydration -Lab 01/01, BUN 21, creatinine 0.96, GFR 58, improved -Avoid nephrotoxins, monitor renal function periodically. N/V/D, abd pain -Patient seen and evaluated by GI, underwent EGD on 12/23: findings erythematous gastritis in the gastric antrum, duodenal inflammation found in the bulb and the second portion of the duodenum, hiatal hernia. -Will need to follow-up with GI for biopsy results, EGD in [address] also recommending [address] versus outpatient colonoscopy once discharged. -No more vomiting, nausea, diarrhea or abdominal pain reported. GI recommendations for, antiemetics as needed, anti-reflux including PPI. -Continue Protonix 40 mg daily, PO zofran as needed. Eating well with no reports of nausea or vomiting. Difficulty ambulate -Patient has been seen and evaluated by physical therapy, assessment reviewed , patient appears to be functioning at optimal status, no continued skilled physical therapy services indicated. -Continue to encourage ambulation with the use of a walker, fall precautions. Urinary incontinence - ? if this is functional incontinence since she reports needing help getting out of bed to use bathroom. - Patient reports she is aware of when she needs to urinate however at times may not make it into the bathroom. Afebrile, no leukocytosis. - UA collected 01/01 positive for occult blood, nitrite, leukocyte esterase, WBC clumps with bacteria in the urine. -Urine culture growing quinones sensitive E.Colil - Continue PO Ceftin 250mg BID (end date 01/08) DVT prophylaxis-subcu heparin Discussed with nurse. Rik Avila January 03, 2018 08:07
[2018-01-03] MEDS: QUEtiapine FUMARATE 25 MG TAB PO SCH (08:55)
[2018-01-03] MEDS: CEFUROXIME AXETIL 250 MG TAB PO SCH (08:55)
[2018-01-03] MEDS: PANTOPRAZOLE SOD 40 MG DELAYED RELEASE TAB PO SCH (08:55)
[2018-01-03] MEDS: GABAPENTIN 100 MG CAP PO SCH ×2 (08:55→13:00)
[2018-01-03] MEDS: HEPARIN SODIUM - SQ 10,000 UNITS/ML VIAL SQ SCH (08:56)
[2018-01-03] MEDS ORDERED: CEFU1TAB18 PO (14:44)
[2018-01-03] MEDS ORDERED: PANT40TA3 PO (14:44)
[2018-01-03] MEDS ORDERED: SERO25TA PO (15:14)
[2018-01-03] MEDS ORDERED: QUET5TAB PO (15:14)
--- NOTE | 2018-01-03 15:16 | HHI.DS ---
Psychiatry Discharge Summary Inpatient Psychiatric care?: Yes Advance Directive: No Reason Not Provided: REFUSED Mental Health AdvanceDirective: No Health Care Proxy: No Admission Admission Date December 24, 2017 at 18:35 Admission Diagnosis: (1) Schizophrenia ICD Code: F20.9 - Schizophrenia, unspecified Brief History The patient is a 67-year-old woman, single, domiciled alone, no children, poor family and social support, currently unemployed but was employed previously, supported by [facility], with psychiatric history of schizophrenia, multiple psychiatric hospitalizations, no suicidal attempts, no recent psychiatric admission, she has been following in outpatient with Dr. FERNANDO, she has been treated with thioridazine 100 mg daily, she has medical history of epilepsia, legally blind who initially came into the hospital for complaints of nausea, vomiting, diarrhea 3 weeks which psychiatry was consulted due to psychotic behavior, increased disorganized speech, paranoia which upon evaluation was noted to be disorganized, loosening associations, thought blocking, internally preoccupied which patient was admitted to the inpatient psychiatry/medical unit for further evaluation and management. As per Dr. Lane's documentation: As per social services assistant report, the patient has not been taking her psychotropics for 3 weeks. Yesterday she found her in her house completely naked, full of feces and talking to her self, which is out of character for the patient. She states that this is a patient that about 3 weeks ago was working part-time, taking care of her finances, very functional. But, she has been complaining of nausea, as a consequence of the nausea she stopped taking her psychotropics and her medical medications, and then decompensated. Patient was found on hospital bed noted, cooperative. Patient states that she has stopped her medications recently due to difficulty of being able to keep medications down reporting having significant nausea vomiting for the past 2 weeks which she states also "lost my job" due to the same. Patient states that she had become sick and could not eat or drink anything, having constant vomiting and diarrhea. Patient states that social services assistant came to her house and saw how she was doing which they had advised patient to come to the hospital for evaluation and treatment. Patient states that today she feels "better" denying any auditory hallucinations morning but did experience and less evening which were noncommand in nature. Patient denies any visual hallucinations or paranoid ideations at this time. Patient continues to complain of nausea but no episodes of vomiting recently. Family psychiatric history: Denies Past psychiatric history: Previous psychiatric diagnoses schizophrenia, multiple psychiatric admissions, no previous suicide attempts, has outpatient mental health provider, Dr. Fernando, patient unclear of her current psychiatric regimen. Past medical history: Epilepsy, legally blind, hypertension Allergies: Thorazine Social history: Domiciled alone, single, no children, unemployed on SSD, recently was working but lost her job as stated in HPI. Patient states her closest contact is Buffy Hernandez (no number provided). Tobacco Use In Past 30 Days: No Tobacco Past 30 Days Alcohol Use: Never Hospital Course The patient is a 67-year-old woman, single, domiciled alone, no children, poor family and social support, currently unemployed but was employed previously, supported by [facility], with psychiatric history of schizophrenia, multiple psychiatric hospitalizations, no suicidal attempts, no recent psychiatric admission, she has been following in outpatient with Dr. FERNANDO, she has been treated with thioridazine 100 mg daily, she has medical history of epilepsia, legally blind who initially came into the hospital for complaints of nausea, vomiting, diarrhea 3 weeks which psychiatry was consulted due to psychotic behavior, increased disorganized speech, paranoia which upon evaluation was noted to be disorganized, loosening associations, thought blocking, internally preoccupied which patient was admitted to the inpatient psychiatry/medical unit for further evaluation and management. Patient was started on quetiapine and titrated to 25mg am/ 50mg PO HS for psychosis and continued on medication regimen for chronic medical illnesses which she tolerated well with no notable adverse drug reactions. Patient denied having had any depressive symptoms prior to admission nor any suicidal ideation but was noted to be disorganized along with confusions initially and resolved by end of admission. She was noted to have had significant amount of deconditioning as she had difficulty with ambulation along with urinary incontinence. Patient was noted with improved mood and stabilization of mood and was not noted to respond to internal stimuli nor endorse and perceptual disturbances. She was observed by staff to not have had any behavioral disturbances, not having made any suicidal or homicidal statements and was noted to participate with staff adequately. Upon discharge patient stated that she was feeling good, reported well with the treatment, denied any SI, HI, perceptual disturbances or delusions. Weighing the acute, chronic, and protective factors and based on the available evidence, I humanities professor to a reasonable degree of medical certainty that the patient is at low imminent risk of harm to self or others from a mental illness as defined under the Strickland act and his level of function is adequate as observed on the unit for planned level of outpatient care. She was counseled regarding warning signs for need to return to the psychiatric emergency room as part of a general safety plan. Patient agreed to transition to a health and rehabilitation facility. Patient advised to call 911 or go nearest ED in case of emergency. Patient agreed with plan. Results Blood Pressure 104 / 59 Vital Signs Date Time Temp Pulse Resp B/P (MAP) Pulse Ox O2 Delivery O2 Flow Rate FiO2 01/03/18 06:00 97.2 81 18 104/59 (74) 94 Laboratory Tests Test 01/01/18 08:58 01/01/18 12:40 Blood Urea Nitrogen 21 MG/DL (7-18) Estimat Glomerular Filtration Rate 58 ML/MIN (>89) Urine Turbidity CLOUDY (CLEAR) Urine Protein 30 mg/dL (NEG-TRACE) Urine Occult Blood SMALL (NEG) Urine Nitrite POS (NEG) Urine Leukocyte Esterase LARGE (NEG) Urine WBC Clumps MANY (NONE) Urine Bacteria MANY /hpf (NONE) Laboratory Results Test 12/25/17 07:45 Cholesterol Level 136 MG/DL (120-200) HDL Cholesterol 40.4 MG/DL (40.0-60.0) Hemoglobin A1c 5.8 % (4.3-6.0) LDL Cholesterol 76 MG/DL (0-99) Triglycerides Level 98 MG/DL (42-150) Summary of Procedures none Imaging Last Impressions Brain MRI 12/30/17 0000 Signed Impressions: Service Date/Time: December 19:26 - CONCLUSION: 1. No acute abnormality seen. 2. Scattered minimal areas of signal abnormality within the cerebral white matter likely secondary to small vessel ischemic change. Rasheed Adams MD Head CT 12/29/17 0000 Signed Impressions: Service Date/Time: Friday, December 29, 2017 11:43 - CONCLUSION: 1. No evidence of acute intracranial process. 2. Surgical calcific deposits which may be the result of previous inflammatory disease. 3. Bilateral temporal craniotomy defects. 4. No evidence of acute infarct, hemorrhage, mass or edema. Warren Gonzalez MD Pending results at discharge: No Medications # of Antipsychotic meds at D/C: 1 Approp Antipsych med options 1 - Minimum of three failed multiple trials of monotherapy. 2 - Documented plan to taper to monotherapy due to previous use of multiple meds OR cross-taper in progress at D/C. 3 - Documentation of augmentation of Clozapine. 4 - Justification other than those listed in allowable values 1-3, document here : Discharge Discharge Date: January 03, 2018 Discharge Diagnosis: (1) Schizophrenia ICD Code: F20.9 - Schizophrenia, unspecified Pt Condition on Discharge: Stable Discharge Disposition: Discharge to SNF Discharge Instructions Diet Instructions: As Tolerated, No Restrictions Activities you can perform: Weight Bearing as Sea Scheduled Appointment: facility provider Appointment Date: January 04, 2018 Appointment Time: 08:30am Discharge Time > 30 minutes 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) Language: Adequate Fund of Knowledge: Inadequate Attention and Concentration: Adequate Memory: Unremarkable Mood: Appropriate, Good Affect: Appropriate, Euthymic Thought Process & Associations: Intact Thought Content: Appropriate Hallucination Type: None Delusion Type: None Suicidal Ideation: No Suicidal Plan: No Suicidal Intention: No Homicidal Ideation: No Homicidal Plan: No Homicidal Intention: No Insight: Adequate Judgment: Adequate Discharge/Advance Care Plan Health Problems: (1) Schizophrenia Goals to promote your health * To prevent worsening of your condition and complications * To maintain your health at the optimal level Directions to meet your goals Take your medications as prescribed Follow your dietary instruction Follow activity as directed Keep your appointments as scheduled Take your immunizations and boosters as scheduled If your symptoms worsen call your PCP, if no PCP go to Urgent Care Center or Emergency Room For 24/ questions related to your inpatient stay or results of tests pending at discharge, please contact Dr. Timothy Balderas at Smoking is Dangerous to Your Health. Avoid second hand smoking Timothy Balderas MD January 03, 2018 15:16
== END 2018-01-03 16:52 | disposition home or self-care (01) | DRG 885 ==
LOC: H4EA 18:35
PROVIDERS: ADMIT Student in an Organized Health Care Education/Training Program; ATTEND Student in an Organized Health Care Education/Training Program
DX: F20.9 Schizophrenia, unspecified (principal); G40.909 Epilepsy, unspecified, not intractable, without status epilepticus; I12.9 Hypertensive chronic kidney disease with stage 1 through stage 4 chronic kidney disease, or unspecified chronic kidney disease; N39.0 Urinary tract infection, site not specified; H54.8 Legal blindness, as defined in USA; N18.9 Chronic kidney disease, unspecified; R32 Unspecified urinary incontinence; R26.2 Difficulty in walking, not elsewhere classified; K29.70 Gastritis, unspecified, without bleeding; K20.9 Esophagitis, unspecified; K29.80 Duodenitis without bleeding; K44.9 Diaphragmatic hernia without obstruction or gangrene; R41.89 Other symptoms and signs involving cognitive functions and awareness; R47.9 Unspecified speech disturbances; G24.01 Drug induced subacute dyskinesia; B96.20 Unspecified Escherichia coli [E. coli] as the cause of diseases classified elsewhere; Z23 Encounter for immunization; Z85.3 Personal history of malignant neoplasm of breast; Z87.820 Personal history of traumatic brain injury; Z91.14 Patient's other noncompliance with medication regimen
CPT/HCPCS: 70450; 70551; 80048; 80061; 80076; 80184; 81001; 83036; 85025; 87077; 87086; 87186; 90686; J1644; Q2038